=== PATIENT | female | born 1960 ===

== ENCOUNTER → 2020-05-08 11:02 | Outpatient (BNVA) | payer OTHER, SELFPAY | PROVIDERS: PCP Internal Medicine; Referring Provider Internal Medicine; Visit Provider Dietitian, Registered | DX: Z76.89 Persons encountering health services in other specified circumstances (principal) ==

== ENCOUNTER → 2020-06-19 11:27 | Outpatient (BNVA) | payer OTHER, SELFPAY | PROVIDERS: PCP Internal Medicine; Referring Provider Internal Medicine; Visit Provider Dietitian, Registered | DX: Z76.89 Persons encountering health services in other specified circumstances (principal) ==

== ENCOUNTER → 2020-07-27 11:36 | Outpatient (BNVA) | payer OTHER, SELFPAY | PROVIDERS: PCP Internal Medicine; Visit Provider Dietitian, Registered | DX: Z76.89 Persons encountering health services in other specified circumstances (principal) ==

== ENCOUNTER → 2020-08-24 11:10 | Outpatient (BNVA) | payer OTHER, SELFPAY | PROVIDERS: PCP Internal Medicine; Visit Provider Dietitian, Registered ==

== ENCOUNTER → 2021-06-16 12:37 | Outpatient (BNVA) | payer OTHER, SELFPAY | PROVIDERS: PCP Internal Medicine; Visit Provider Internal Medicine | DX: E04.2 Nontoxic multinodular goiter (principal); E55.9 Vitamin D deficiency, unspecified | CPT/HCPCS: 99212 ==

== ENCOUNTER 2021-07-05 13:53 | Outpatient (REF) | payer OTHER, SELFPAY ==
--- NOTE | ~2021-07-05 | CT_ITS ---
EXAMINATION: CT SOFT TISSUE NECK WITHOUT CONTRAST CLINICAL INFORMATION: Nontoxic multinodular goiter COMPARISON: Previous thyroid ultrasound March 2019 TECHNIQUE: Helical imaging was performed in the axial plane with generation of coronal and sagittal reformatted images. This CT examination was performed using dose optimization techniques as appropriate, variously including the following: *Automated exposure control *Adjustment of mA and/or kV according to patient size (this includes techniques or standardized protocols for targeted exams where dose is matched to indication/reason for exam; i.e. extremities or head) *Use of iterative reconstruction technique DLP: 320 mGy-cm FINDINGS: There is a large thyroid nodule exophytic to the lower pole of the left lobe. This measures 3.3 x 3.1 x 5.2 cm in AP transverse and longitudinal dimension. Extends substernally into the superior mediastinum. This displaces the trachea to the right. No mediastinal adenopathy is seen. There is shotty diffuse cervical lymphadenopathy. No enlarged lymph nodes are seen. Visualized intracranial structures are normal. The orbits are normal. The paranasal sinuses, mastoid air cells and middle ears are clear. There is prominent soft tissue seen in the oropharynx. This may represent prominent lymphoid tissue. The epiglottis and larynx are normal. There is mild degenerative spondylosis and degenerative disc disease at C5-C6 and C6-C7. CT/CT soft tissue neck wo con IMPRESSION: Large left thyroid nodule exophytic to the lower pole extending substernally into the chest and displacing the trachea to the right. Shotty bilateral cervical lymphadenopathy. No enlarged lymph nodes are seen. Fullness of the soft tissues in the oropharynx question representing prominent adenoidal soft tissue. Clinical correlation recommended.
== END 2021-07-05 13:54 | disposition home or self-care (01) ==
LOC: HO.CT 13:53
PROVIDERS: Visit Provider Internal Medicine
DX: E04.2 Nontoxic multinodular goiter (principal)
CPT/HCPCS: 70490

== ENCOUNTER 2021-07-19 10:39 | Outpatient (REF) | payer OTHER, SELFPAY ==
[2021-07-19 11:14] LABS: Estimated Average Glucose 108 mg/dL; Hemoglobin A1c % 5.4 %
[2021-07-19 11:27] LABS: Alanine Aminotransferase 30 U/L (0-31); Albumin Level 4.1 g/dL (3.5-5.0); Alkaline Phosphatase 67 U/L (39-117); Anion Gap 9 (12-20); Aspartate Amino Transferase 22 U/L (5-31); Bilirubin Total 0.6 mg/dL (0.0-1.0); Blood Urea Nitrogen 15 mg/dL (9-16); Calcium 10.3 mg/dL (8.4-10.2); Carbon Dioxide 32 mmol/L (22-29); Chloride 105 mmol/L (96-108); Estimated Glomerular Filt Rate > 60; Glucose Random 117 mg/dL (60-115); Phosphorus 3.8 mg/dL (2.7-4.5); Potassium 4.4 mmol/L (3.3-5.1); Sodium 142 mmol/L (135-145); Total Protein 7.7 g/dL (6.5-8.0)
[2021-07-19 11:49] LABS: Thyroid Stimulating Hormone 1.09 uIU/mL (0.32-4.0); Vitamin D 25-OH Total 12.5 ng/mL (>30)
[2021-07-20 12:01] LABS: Calcium (PTHI) 9.9 mg/dL (8.6-10.4); PTHI 74 pg/mL (14-64)
== END 2021-07-19 10:40 | disposition home or self-care (01) ==
LOC: HO.US 10:39
PROVIDERS: PCP Internal Medicine; Visit Provider Internal Medicine
DX: E04.2 Nontoxic multinodular goiter (principal); E55.9 Vitamin D deficiency, unspecified; E66.9 Obesity, unspecified
CPT/HCPCS: 36415; 80053; 82306; 83036; 83970; 84100; 84439; 84443

== ENCOUNTER 2021-07-26 13:20 | Outpatient (REF) | payer OTHER, SELFPAY ==
--- NOTE | ~2021-07-26 | US_ITS ---
EXAMINATION: US THYROID CLINICAL INFORMATION: Goiter. COMPARISON: Thyroid soft tissue neck/head 04/03/2019. TECHNIQUE: Linear transducer soto-scale and color Doppler examination with attention to the region of the thyroid. FINDINGS: SIZE: Measurements of the thyroid lobes and nodules are given in sagittal, anteroposterior and transverse dimensions respectively. Right Thyroid Lobe: 4.7 x 1.6 x 1.7 cm, volume 6.7 mL. Previously 5.0 x 1.6 x 1.8 cm, volume 7.5 mL. Parenchyma: The gland echotexture is heterogeneous. Thyroid vascularity is normal. Left Thyroid Lobe: 6.5 x 3.0 x 2.8 cm, volume 28.6 mL. Previously 5.7 x 2.7 x 2.5 cm, volume 20.1 mL. Parenchyma: The gland echotexture is heterogeneous. Thyroid vascularity is normal. Isthmus: 0.7 cm in maximum AP dimension. Previously 0.4 cm. Estimated total number of nodules greater than or equal to 1 cm: 1. 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 Location: Left lower. Size: 5.4 x 2.9 x 3.4 cm, volume 27.8 mL. Previously: 3.8 x 2.6 x 2.7 cm, volume 14.0 mL. Nodule characteristics: Composition: Solid (2). Echogenicity: Hypoechoic (2). Shape: Not taller than wide (0). Margins: Ill-defined (0). Echogenic Foci: None (0). ACR TI-RADS total points: 4 ACR TI-RADS category: 4 Significant change in size (>/= 20% in 2 dimensions and minimal increase of 2 mm or 50% or greater increase in volume): Yes Change in features: No Change in ACR TI-RADS risk category: No NODES: No lymphadenopathy is seen in the tissue surrounding the thyroid gland. US/US thyroid IMPRESSION: Increased size and heterogeneity of the left lobe of the thyroid and isthmus when compared to study from 2019 with also increased size of a dominant thyroid nodule in the lower pole of the left lobe which now measures up to 5.4 cm versus 3.8 cm in 2019. If not already obtained, further evaluation of this nodule with FNA is recommended. Otherwise, given change in size, a short-term follow-up study is recommended. A few additional nodules in the right lobe of the thyroid described on the prior study are not definitely visualized in the current examination.
== END 2021-07-26 13:21 | disposition home or self-care (01) ==
LOC: HO.US 13:20
PROVIDERS: Visit Provider Internal Medicine
DX: E04.2 Nontoxic multinodular goiter (principal)
CPT/HCPCS: 76536

== ENCOUNTER → 2021-07-28 13:24 | Outpatient (BNVA) | payer OTHER, SELFPAY | PROVIDERS: PCP Internal Medicine; Visit Provider Internal Medicine | DX: E04.2 Nontoxic multinodular goiter (principal); E55.9 Vitamin D deficiency, unspecified; E21.3 Hyperparathyroidism, unspecified; I10 Essential (primary) hypertension | CPT/HCPCS: 99212 ==

== ENCOUNTER 2021-08-28 08:27 | Outpatient (REF) | payer OTHER, SELFPAY ==
--- NOTE | ~2021-08-28 | MM_ITS ---
EXAMINATION: MM SCREENING DIGITAL BREAST TOMOSYNTHESIS, BILATERAL CLINICAL INFORMATION: Screening. Asymptomatic. The lifetime risk of breast cancer based on the Tyrer-Cuzick Model is 6%. COMPARISON: Mammography: 09/30/2017, 05/31/2016, 07/02/2014 TECHNIQUE: Digital breast tomosynthesis is performed in both the craniocaudal and mediolateral oblique views along with computer-aided detection (CAD). Synthesized 2D images are generated from the tomosynthesis. FINDINGS: There are scattered areas of fibroglandular density (ACR BI-RADS breast composition Category b). There are no significant masses, abnormal calcifications, or other abnormalities. Breast tissue composition borders on predominantly fatty. Background stromal markings are stable. No significant changes. MM/MM tomosynthesis screening BI IMPRESSION: No mammographic evidence of malignancy. ASSESSMENT: BI-RADS 1: Negative RECOMMENDATION: Routine annual mammography screening. This patient's information was entered into a reminder system with a target due date for their next mammogram.
== END 2021-08-28 08:28 | disposition home or self-care (01) ==
LOC: HO.MAMMO 08:27
PROVIDERS: Visit Provider Nurse Practitioner Family
DX: Z12.31 Encounter for screening mammogram for malignant neoplasm of breast (principal)
CPT/HCPCS: 77063; 77067

== ENCOUNTER 2021-09-27 10:44 | Outpatient (REF) | payer OTHER, SELFPAY ==
--- NOTE | ~2021-09-27 | US_ITS ---
EXAMINATION: US RENAL DOPPLER CLINICAL INFORMATION: Essential hypertension. COMPARISON: None. TECHNIQUE: Routine ultrasound and Doppler imaging of the kidneys is performed. FINDINGS: Right kidney measures 9.5 x 3.9 x 5.7 cm. There is normal cortical thickness. No echogenic stones, cysts or hydronephrosis seen. Left kidney measures 11.0 x 4.8 x 4.8 cm. There are no echogenic stones, cysts or hydronephrosis. On Doppler Imaging: Right kidney: The proximal right renal artery velocity measures 117 cm/second, midsegment measures 121 cm/second and distal segment measures 63 cm/second. The average segmental resistive index is less than 0.8 cm. Renal aortic ratio is less than 3.5. Left kidney: The proximal left renal artery velocity measures 80.7 cm/second, midsegment measures 103 cm/second and distal segment measures 116 cm/second. The average resistive index measures less than 0.8 cm. Renal aortic ratio is less than 3.5. Peak mid aortic systolic velocity measures 90.3 cm/second. US/US renal doppler IMPRESSION: Unremarkable kidney exam. Normal bilateral renal artery Doppler exam. No evidence of renal artery stenosis.
== END 2021-09-27 10:45 | disposition home or self-care (01) ==
LOC: HO.US 10:44
PROVIDERS: PCP Internal Medicine; Visit Provider Internal Medicine
DX: I10 Essential (primary) hypertension (principal)
CPT/HCPCS: 93975

== ENCOUNTER 2021-12-24 11:01 | Outpatient (REF) | payer OTHER, SELFPAY ==
[2021-12-24 12:27] LABS: Alanine Aminotransferase 25 U/L (0-31); Alkaline Phosphatase 55 U/L (39-117); Anion Gap 15 (12-20); Aspartate Amino Transferase 22 U/L (5-31); Bilirubin Total 0.5 mg/dL (0.0-1.0); Blood Urea Nitrogen 20 mg/dL (9-16); Calcium 9.2 mg/dL (8.4-10.2); Carbon Dioxide 27 mmol/L (22-29); Chloride 108 mmol/L (96-108); Cholesterol 179 mg/dL; Estimated Glomerular Filt Rate > 60; Glucose Fasting 96 mg/dL (60-99); HDL Cholesterol 43 mg/dL; LDL Cholesterol Calculated 116 mg/dl; Potassium 4.4 mmol/L (3.3-5.1); Sodium 146 mmol/L (135-145); Total Protein 7.2 g/dL (6.5-8.0); Triglycerides 100 mg/dL
== END 2021-12-24 11:02 | disposition home or self-care (01) ==
LOC: HO.LAB 11:01
PROVIDERS: PCP Internal Medicine; Visit Provider Internal Medicine
DX: I10 Essential (primary) hypertension (principal); E78.5 Hyperlipidemia, unspecified
CPT/HCPCS: 36415; 80053; 80061

== ENCOUNTER 2022-02-03 10:50 | Outpatient (REF) | payer OTHER, SELFPAY ==
--- NOTE | 2022-02-03 11:16 | P.BOP_ITS ---
Brief Operative Note Date of Service: 02/03/22 Pre-op diagnosis: Multinodular thyroid Procedure: This is doctor Harini Garcia. This is an ultrasound-guided fine-needle aspiration report. Date of Examination: 02/03/2022 Indication: Multinodular Thyroid Porcedure: Procedure was explained to the patient. Alternatives, the risk and benefits were discussed. Written consent was obtained. A time-out was also obtained. After sterile preparation, fine-needle aspiration of a left lower pole 5.4 cm thyroid nodule was performed using direct ultrasound guidance to confirm accurate needle placement. Four aspirations were made using 27 gauge needles. Samples were submitted for cytology. 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 The patient tolerated the procedure well. Aftercare instructions were provided. Impression: Uncomplicated fine needle aspiration biopsy of a left lower pole 5.4 cm thyroid nodule under ultrasound guidance. Surgeon: Harini Garcia, DO Was an Department Clinician used for this Procedure?: No Estimated blood loss (mL): 0
[2022-02-03] MEDS: Lidocaine HCl 1 % MPF 5 ML VIAL SUBCUT (11:36)
== END 2022-02-03 10:51 | disposition home or self-care (01) ==
LOC: HO.US 10:50
PROVIDERS: Visit Provider Internal Medicine
DX: E04.2 Nontoxic multinodular goiter (principal)
CPT/HCPCS: 10005; 88172; 88173; 88177

== ENCOUNTER → 2022-02-17 13:20 | Outpatient (BNVA) | payer OTHER, SELFPAY | PROVIDERS: PCP Internal Medicine; Visit Provider Internal Medicine | DX: E55.9 Vitamin D deficiency, unspecified (principal); E04.2 Nontoxic multinodular goiter; E21.3 Hyperparathyroidism, unspecified | CPT/HCPCS: 99212 ==

== ENCOUNTER 2022-08-06 09:08 | Outpatient (REF) | payer OTHER, SELFPAY ==
[2022-08-06 11:27] LABS: Alanine Aminotransferase 23 U/L (0-31); Albumin Level 3.9 g/dL (3.5-5.0); Alkaline Phosphatase 59 U/L (39-117); Anion Gap 14 (12-20); Aspartate Amino Transferase 19 U/L (5-31); Bilirubin Total 0.4 mg/dL (0.0-1.0); Blood Urea Nitrogen 25 mg/dL (9-16); Calcium 9.4 mg/dL (8.4-10.2); Carbon Dioxide 24 mmol/L (22-29); Chloride 110 mmol/L (96-108); Estimated Glomerular Filt Rate > 60; Glucose Random 107 mg/dL (60-115); Phosphorus 3.2 mg/dL (2.7-4.5); Potassium 4.3 mmol/L (3.3-5.1); Sodium 144 mmol/L (135-145)
[2022-08-06 11:43] LABS: Free T4 (Free Thyroxine) 1.31 ng/dL (0.71-1.85); Thyroid Stimulating Hormone 0.75 uIU/mL (0.32-4.0); Vitamin D 25-OH Total 53.4 ng/mL (>30)
[2022-08-08 16:29] LABS: Calcium (PTHI) 9.7 mg/dL (8.6-10.4); PTHI 94 pg/mL (16-77)
== END 2022-08-06 09:09 | disposition home or self-care (01) ==
LOC: HO.LAB 09:08
PROVIDERS: PCP Internal Medicine; Visit Provider Internal Medicine
DX: E04.2 Nontoxic multinodular goiter (principal); E21.3 Hyperparathyroidism, unspecified; E55.9 Vitamin D deficiency, unspecified
CPT/HCPCS: 36415; 80053; 82306; 83970; 84100; 84439; 84443

== ENCOUNTER 2022-08-22 13:49 | Outpatient (REF) | payer OTHER, SELFPAY ==
[2022-08-22 15:45] LABS: Alanine Aminotransferase 24 U/L (0-31); Albumin Level 4.3 g/dL (3.5-5.0); Alkaline Phosphatase 67 U/L (39-117); Anion Gap 14 (12-20); Aspartate Amino Transferase 19 U/L (5-31); Bilirubin Total 0.5 mg/dL (0.0-1.0); Blood Urea Nitrogen 24 mg/dL (9-16); Carbon Dioxide 27 mmol/L (22-29); Chloride 106 mmol/L (96-108); Estimated Glomerular Filt Rate > 60; Glucose Random 89 mg/dL (60-115); Phosphorus 3.6 mg/dL (2.7-4.5); Sodium 143 mmol/L (135-145); Total Protein 7.5 g/dL (6.5-8.0)
[2022-08-22 16:00] LABS: Vitamin D 25-OH Total 53.6 ng/mL (>30)
[2022-08-23 15:08] LABS: Calcium (PTHI) 10.1 mg/dL (8.6-10.4); PTHI 65 pg/mL (16-77)
== END 2022-08-22 13:50 | disposition home or self-care (01) ==
LOC: HO.LAB 13:49
PROVIDERS: PCP Internal Medicine; Visit Provider Internal Medicine
DX: E21.3 Hyperparathyroidism, unspecified (principal); E55.9 Vitamin D deficiency, unspecified; E04.2 Nontoxic multinodular goiter
CPT/HCPCS: 36415; 80053; 82306; 83970; 84100; 99212

== ENCOUNTER 2022-09-17 10:05 | Outpatient (REF) | payer OTHER, SELFPAY ==
--- NOTE | ~2022-09-17 | MM_ITS ---
EXAMINATION: MM SCREENING DIGITAL BREAST TOMOSYNTHESIS, BILATERAL CLINICAL INFORMATION: Screening. Asymptomatic. The lifetime risk of breast cancer based on the Tyrer-Cuzick Model is 5%. COMPARISON: Mammography: 08/28/2021, 09/30/2017, 05/31/2016 TECHNIQUE: Digital breast tomosynthesis is performed in both the craniocaudal and mediolateral oblique views along with computer-aided detection (CAD). Synthesized 2D images are generated from the tomosynthesis. FINDINGS: There are scattered areas of fibroglandular density (ACR BI-RADS breast composition Category b). Breast tissue composition borders on predominantly fatty. Background stromal markings are normal. No developing density or architectural abnormality. There are no significant masses, abnormal calcifications, or other abnormalities. No significant changes from prior studies. MM/MM tomosynthesis screening BI IMPRESSION: No mammographic evidence of malignancy. ASSESSMENT: BI-RADS 1: Negative RECOMMENDATION: Routine annual mammography screening. This patient's information was entered into a reminder system with a target due date for their next mammogram.
[2022-09-17 10:21] LABS: MANUAL DIFF FLAG NO
[2022-09-17 11:12] LABS: Basophils Absolute Auto 0.1 X10*3/uL (0.0-0.2); Basophils Percent Auto 0.6 % (0-2); Eosinophils Absolute Auto 0.1 X10*3/uL (0.0-0.4); Eosinophils Percent Auto 1.7 % (0-4); Hematocrit 41.5 % (37.0-47.0); Hemoglobin 15.1 g/dl (12.0-16.0); Imm Gran Abs Auto 0.03 X10*3/uL (0.00-0.03); Imm Gran Pct Auto 0.4 % (0.0-0.4); Lymphocytes Absolute Auto 2.7 X10*3/uL (1.2-4.9); Lymphocytes Percent Auto 34.9 % (20-40); Mean Corpuscular HGB Conc 36.4 g/dl (31.0-35.0); Mean Corpuscular Volume 87.9 fL (80.0-98.0); Mean Platelet Volume 11.4 fL (9.4-12.3); Monocytes Absolute Auto 0.5 X10*3/uL (0.1-1.2); Monocytes Percent Auto 6.8 % (2-11); Neutrophils Absolute Auto 4.3 x10*3/uL (2.0-8.3); Neutrophils Percent Auto 55.6 % (45-73); Platelet Count 297 X10*3/uL (160-400); Red Blood Count 4.72 X10*6/uL (4.20-5.50); Red Cell Distribution Width 12.2 % (11.0-16.0); White Blood Count 7.8 X10*3/uL (4.8-10.8)
[2022-09-17 11:36] LABS: Cholesterol 192 mg/dL; HDL Cholesterol 49 mg/dL; LDL Cholesterol Calculated 127 mg/dl; Triglycerides 81 mg/dL
== END 2022-09-17 10:06 | disposition home or self-care (01) ==
LOC: HO.MAMMO 10:05
PROVIDERS: Nurse Practitioner Family; Absent Provider Internal Medicine; PCP Internal Medicine; Visit Provider Internal Medicine
DX: Z00.00 Encounter for general adult medical examination without abnormal findings (principal); Z12.31 Encounter for screening mammogram for malignant neoplasm of breast; E78.5 Hyperlipidemia, unspecified
CPT/HCPCS: 36415; 77063; 77067; 80061; 85025

== ENCOUNTER 2022-09-17 11:12 | Outpatient (REF) | payer OTHER, SELFPAY ==
[2022-09-17 11:41] LABS: Creatinine, mg/dL 48.86
[2022-09-17 12:10] LABS: Creatinine, 24Hr Urine 1.5 G/Day (1.0-2.0); Total Volume 24 Hour Urine 3000 mL
[2022-09-19 16:34] LABS: Calcium, 24 Hr Urine 210 mg/24 h; Calcium/Creatinine Ratio 140 mg/g creat (30-275)
== END 2022-09-17 11:13 | disposition home or self-care (01) ==
LOC: HO.LNP 11:12
PROVIDERS: Visit Provider Internal Medicine
DX: E21.3 Hyperparathyroidism, unspecified (principal)
CPT/HCPCS: 82340; 82570

== ENCOUNTER 2022-11-23 10:57 | Outpatient (REF) | payer OTHER, SELFPAY ==
[2022-11-23 13:01] LABS: Alanine Aminotransferase 23 U/L (0-31); Alkaline Phosphatase 63 U/L (39-117); Anion Gap 12 (12-20); Aspartate Amino Transferase 21 U/L (5-31); Bilirubin Total 0.5 mg/dL (0.0-1.0); Blood Urea Nitrogen 16 mg/dL (9-16); Calcium 9.4 mg/dL (8.4-10.2); Carbon Dioxide 28 mmol/L (22-29); Chloride 110 mmol/L (96-108); Estimated Glomerular Filt Rate > 60; Glucose Random 111 mg/dL (60-115); Phosphorus 2.9 mg/dL (2.7-4.5); Potassium 4.2 mmol/L (3.3-5.1); Sodium 146 mmol/L (135-145); Total Protein 7.2 g/dL (6.5-8.0)
[2022-11-23 13:02] LABS: Free T4 (Free Thyroxine) 1.13 ng/dL (0.71-1.85); Thyroid Stimulating Hormone 0.76 uIU/mL (0.32-4.0); Vitamin D 25-OH Total 34.3 ng/mL (>30)
[2022-11-25 15:33] LABS: Calcium (PTHI) 9.4 mg/dL (8.6-10.4); PTHI 77 pg/mL (16-77)
== END 2022-11-23 10:58 | disposition home or self-care (01) ==
LOC: HO.LAB 10:57
PROVIDERS: PCP Internal Medicine; Visit Provider Internal Medicine
DX: E04.2 Nontoxic multinodular goiter (principal); E21.3 Hyperparathyroidism, unspecified; E55.9 Vitamin D deficiency, unspecified; R13.10 Dysphagia, unspecified; Z79.899 Other long term (current) drug therapy
CPT/HCPCS: 36415; 80053; 82306; 83970; 84100; 84439; 84443; 99212

== ENCOUNTER 2022-11-24 10:27 | Outpatient (REF) | payer OTHER, SELFPAY ==
[2022-11-24 11:42] LABS: Sodium 145 mmol/L (135-145)
== END 2022-11-24 10:28 | disposition home or self-care (01) ==
LOC: HO.LAB 10:27
PROVIDERS: PCP Internal Medicine; Visit Provider Internal Medicine
DX: I10 Essential (primary) hypertension (principal)
CPT/HCPCS: 36415; 84295

== ENCOUNTER 2023-05-11 06:01 | Outpatient (REF) | payer OTHER, SELFPAY ==
[2023-05-11 07:59] LABS: Alanine Aminotransferase 22 U/L (0-31); Albumin Level 3.9 g/dL (3.5-5.0); Alkaline Phosphatase 60 U/L (39-117); Anion Gap 12 (12-20); Aspartate Amino Transferase 21 U/L (5-31); Bilirubin Total 0.4 mg/dL (0.0-1.0); Blood Urea Nitrogen 20 mg/dL (9-16); Calcium 9.2 mg/dL (8.4-10.2); Carbon Dioxide 25 mmol/L (22-29); Chloride 111 mmol/L (96-108); Estimated Glomerular Filt Rate > 60; Glucose Random 109 mg/dL (60-115); Phosphorus 2.7 mg/dL (2.7-4.5); Potassium 3.7 mmol/L (3.3-5.1); Sodium 144 mmol/L (135-145); Total Protein 7.2 g/dL (6.5-8.0)
[2023-05-11 08:05] LABS: Free T4 (Free Thyroxine) 0.98 ng/dL (0.71-1.85); Thyroid Stimulating Hormone 4.78 uIU/mL (0.32-4.0); Vitamin D 25-OH Total 26.6 ng/mL (>30)
[2023-05-12 19:33] LABS: Calcium (PTHI) 8.9 mg/dL (8.6-10.4); PTHI 61 pg/mL (16-77)
== END 2023-05-11 06:02 | disposition home or self-care (01) ==
LOC: HO.LAB 06:01
PROVIDERS: PCP Internal Medicine; Visit Provider Internal Medicine
DX: E55.9 Vitamin D deficiency, unspecified (principal); E21.3 Hyperparathyroidism, unspecified; E04.2 Nontoxic multinodular goiter
CPT/HCPCS: 36415; 80053; 82306; 83970; 84100; 84439; 84443

== ENCOUNTER 2023-05-15 16:15 | Outpatient (AMB) | payer OTHER, SELFPAY ==
[2023-05-15 16:16] VITALS: BP 138/88; PULSE 91; BMI 37.9
--- NOTE | 2023-05-15 16:16 | MHC.OFFVIS ---
Intake Vital Signs 05/15/23 16:16 Height 5 ft Weight 194 lb 3.636 oz BMI 37.9 BP 138/88 Blood Pressure Location Rt brachial Position Sitting Pulse 91 Pulse Source Pulse Oximeter Intake Visit Reasons: F/U NTMNG Intake Note: Patient present for NTMNG follow up visit. District Branch Manager Required: Yes District Branch Manager Language: Laboratory Development Technician Name: Sandra [id number] Information Interpreted: non-clinical & clinical Accompanied by: Self / Same As Patient Allergies No Known Allergies Allergy (Verified 05/15/23 16:25) HPI HPI Comments History of Present Illness Details 63 YO Female with a PMHx of a NTMNG who is seen in F/U. She was previously followed by Dr. Bland. The patient last saw Dr. Felder on 11/23/2022 She has a large LLP thyroid nodule and underwent FNA biopsy of this LLP 4.3 cm thyroid nodule 04/12/2018 with benign cytology. She had a repeat US completed 04/03/2019 which revealed interval decrease in size of this nodule to 3.8 cm. She was advised to F/U in 1 years time with labs and an US prior, but was lost to F/U. She does report dysphagia, and some tenderness on the L side of the neck. She denies any symptoms of hyper or hypothyroidism currently. Due to her dysphagia a CT of the neck was checked 07/05/2021 which revealed a large nodule exophytic to the L lobe of the thyroid extending into the superior mediastinum and displacing the trachea to the right. She had a repeat thyroid US which demonstated a 5.4 cm LLP thyroid nodule. She underwent FNA biopsy 02/03/2022 of this LLP 5.4 cm thyroid nodule with benign cytology. She was referred to Dr. Bah and was scheduled for surgical thyroidectomy, but cancelled this due to a tooth infection. She has not yet been rescheduled. Labs revealed TFTs WNL, but her PTH was elevated in the setting of low Vitamin D. Calcium was high normal. Labs were repeated and PTH had normalized, but Calcium remained high normal. 24 hour urine calcium was high normal. She remains off calcium and Vitamin D at this time. Labs: Laboratory Tests 04/13/20 07/19/21 07/19/21 12:08 10:40 10:40 Creatinine 0.85 Estimated GFR > 60 Albumin 4.1 25-OH Vitamin D To odalis 12.5 Free T4 1.29 1.20 TSH 3rd Generation 0.59 TSH 1.09 PTH Intact 74 H Calcium (PTH Intac t) 9.9 CT Neck: 07/05/2021 FINDINGS: There is a large thyroid nodule exophytic to the lower pole of the left lobe. This measures 3.3 x 3.1 x 5.2 cm in AP transverse and longitudinal dimension. Extends substernally into the superior mediastinum. This displaces the trachea to the right. No mediastinal adenopathy is seen. There is shotty diffuse cervical lymphadenopathy. No enlarged lymph nodes are seen. Visualized intracranial structures are normal. The orbits are normal. The paranasal sinuses, mastoid air cells and middle ears are clear. There is prominent soft tissue seen in the oropharynx. This may represent prominent lymphoid tissue. The epiglottis and larynx are normal. There is mild degenerative spondylosis and degenerative disc disease at C5-C6 and C6-C7. CT/CT soft tissue neck wo con IMPRESSION: Large left thyroid nodule exophytic to the lower pole extending substernally into the chest and displacing the trachea to the right. Shotty bilateral cervical lymphadenopathy. No enlarged lymph nodes are seen. Fullness of the soft tissues in the oropharynx question representing prominent adenoidal soft tissue. Clinical correlation recommended. Thyroid US: 07/26/2021 Right Thyroid Lobe: 4.7 x 1.6 x 1.7 cm, volume 6.7 mL. Previously 5.0 x 1.6 x 1.8 cm, volume 7.5 mL. Parenchyma: The gland echotexture is heterogeneous. Thyroid vascularity is normal. Left Thyroid Lobe: 6.5 x 3.0 x 2.8 cm, volume 28.6 mL. Previously 5.7 x 2.7 x 2.5 cm, volume 20.1 mL. Parenchyma: The gland echotexture is heterogeneous. Thyroid vascularity is normal. Isthmus: 0.7 cm in maximum AP dimension. Previously 0.4 cm. Estimated total number of nodules greater than or equal to 1 cm: 1. 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 Location: Left lower. ?? ? Size: 5.4 x 2.9 x 3.4 cm, volume 27.8 mL. ?? ? Previously: 3.8 x 2.6 x 2.7 cm, volume 14.0 mL. ?? ? Nodule characteristics: ?? ? Composition: Solid (2). ?? ? Echogenicity: Hypoechoic (2). ?? ? Shape: Not taller than wide (0). ?? ? Margins: Ill-defined (0). ?? ? Echogenic Foci: None (0). ? ACR TI-RADS total points: 4 ?? ? ACR TI-RADS category: 4 ? Significant change in size (>/= 20% in 2 dimensions and minimal increase of 2 mm or 50% or greater increase in volume): Yes ?? ? Change in features: No ?? ? Change in ACR TI-RADS risk category: No NODES: No lymphadenopathy is seen in the tissue surrounding the thyroid gland. She is status post left thyroidectomy on 01/27/[address] Bah . Feels tired and constipated [facility] Medical History (Updated 01/04/23 @ 11:00 by Tosin Menezes MD) Hyperparathyroidism History of COVID-19 (~03/2021) Vitamin D deficiency Multinodular thyroid Obesity (BMI 30-39.9) Surgical History History of ankle surgery History of section History of colonoscopy History of hand surgery History of total abdominal hysterectomy and bilateral salpingo-oophorectomy Family History Father No problems noted. Mother Hypertension Paternal Aunt Breast cancer Brother Myocardial infarction Social History Household Members: Children Housing: House Alcohol intake: current Alcohol intake frequency: holidays/special occasions only Alcohol type: wine Patient Tobacco Use Status: Never used Tobacco e-Cigarette/Vaping Use: Never Used Second Hand Smoke Exposure: No service: No Current occupational status: employed Current occupational exposures/hazards: No Cognitive needs: No Hearing needs: No Vision needs: Yes Physical Exam Vital Signs: BMI result Body Mass Index 37.9 Const Other: Healing scar status post left lobectomy Assessment & Plan Assessment & Plan (1) Multinodular thyroid: Code(s): E04.2 - Nontoxic multinodular goiter Plan: This 63-year-old female with a history of large left thyroid nodule status post left lobectomy with borderline increased TSH level. The plan is to initiate levothyroxine 75 micrograms and recheck TSH and free T4 in 6 weeks time Orders: Orders Free T4 (Free Thyroxine) 6 Weeks E04.2 - Nontoxic multinodular goiter Thyroid Stimulating Hormone 6 Weeks E04.2 - Nontoxic multinodular goiter Medications: New levothyroxine 75 mcg PO DAILY 30 tabs 5RF Coding Level of Care Code Est Pt Level 3 (58301) Diagnoses Multinodular thyroid E04.2
== END 2023-05-15 16:33 | disposition home or self-care (01) ==
PROVIDERS: PCP Internal Medicine; Visit Provider Internal Medicine Endocrinology, Diabetes & Metabolism
DX: E04.2 Nontoxic multinodular goiter (principal)
CPT/HCPCS: 99213

== ENCOUNTER → 2023-05-15 16:15 | Outpatient (BNVA) | payer OTHER, SELFPAY | PROVIDERS: PCP Internal Medicine; Visit Provider Internal Medicine Endocrinology, Diabetes & Metabolism | DX: E04.2 Nontoxic multinodular goiter (principal) | CPT/HCPCS: 99212 ==

== ENCOUNTER 2023-05-26 08:37 | Outpatient (REF) | payer OTHER, SELFPAY ==
--- NOTE | ~2023-05-26 | XR_ITS ---
STUDY: Left shoulder and bilateral hand INDICATION: Left shoulder and bilateral hand pain after fall COMPARISON: 06/27/2015 left shoulder TECHNIQUE: 4 view left shoulder 3 view each hand FINDINGS: Left shoulder: Humeral spurring. Mild acromioclavicular joint space narrowing with calcification superior aspect of the joint. Visualized lung and ribs are unremarkable. No fracture or dislocation. Left hand : Fourth DIP interphalangeal joint space narrowing.. Surgical hardware distal left radius. No fracture or dislocation Right hand: No fracture or dislocation. No significant joint space narrowings. XR/XR hand LT 2V IMPRESSION: No acute bony pathology hands the left shoulder and bilateral hands. Degenerative type changes left shoulder and left hand.
--- NOTE | ~2023-05-26 | XR_ITS ---
STUDY: Left shoulder and bilateral hand INDICATION: Left shoulder and bilateral hand pain after fall COMPARISON: 06/27/2015 left shoulder TECHNIQUE: 4 view left shoulder 3 view each hand FINDINGS: Left shoulder: Humeral spurring. Mild acromioclavicular joint space narrowing with calcification superior aspect of the joint. Visualized lung and ribs are unremarkable. No fracture or dislocation. Left hand : Fourth DIP interphalangeal joint space narrowing.. Surgical hardware distal left radius. No fracture or dislocation Right hand: No fracture or dislocation. No significant joint space narrowings. XR/XR hand RT 2V IMPRESSION: No acute bony pathology hands the left shoulder and bilateral hands. Degenerative type changes left shoulder and left hand.
--- NOTE | ~2023-05-26 | XR_ITS ---
STUDY: Left shoulder and bilateral hand INDICATION: Left shoulder and bilateral hand pain after fall COMPARISON: 06/27/2015 left shoulder TECHNIQUE: 4 view left shoulder 3 view each hand FINDINGS: Left shoulder: Humeral spurring. Mild acromioclavicular joint space narrowing with calcification superior aspect of the joint. Visualized lung and ribs are unremarkable. No fracture or dislocation. Left hand : Fourth DIP interphalangeal joint space narrowing.. Surgical hardware distal left radius. No fracture or dislocation Right hand: No fracture or dislocation. No significant joint space narrowings. XR/XR shoulder LT min 2V IMPRESSION: No acute bony pathology hands the left shoulder and bilateral hands. Degenerative type changes left shoulder and left hand.
== END 2023-05-26 08:38 | disposition home or self-care (01) ==
LOC: HO.XRAY 08:37
PROVIDERS: PCP Internal Medicine; Visit Provider Internal Medicine
DX: M79.642 Pain in left hand (principal); M79.641 Pain in right hand; M25.512 Pain in left shoulder
CPT/HCPCS: 73030; 73120

== ENCOUNTER 2023-05-29 10:49 | Outpatient (AMB) | payer OTHER, SELFPAY ==
--- NOTE | 2023-05-29 10:52 | MHC.PC.OV ---
Vital Signs 05/29/23 10:53 Height 5 ft Weight 193 lb BMI 37.7 BP 122/80 Blood Pressure Location Lt brachial Position Sitting Pulse 83 Pulse Source Pulse Oximeter Pulse Oximetry (%) 97 Oxygen Delivery Method Room Air Intake Visit Reasons: bp Intake Note: Patient here for a follow up BP Ground Worker Required: No Accompanied by: Self / Same As Patient Allergies No Known Allergies Allergy (Verified 05/29/23 11:04) Medication List - Last Reconciled 05/29/23 by Tosin Menezes MD albuterol sulfate 90 mcg/actuation (ProAir RespiClick) 2 inhalations inhalation Q6H PRN 30 days amlodipine 10 mg PO DAILY 30 days blood pressure monitor As directed budesonide-formoterol 160-4.5 mcg/actuation (Symbicort) 2 puffs inhalation BID cholecalciferol (vitamin D3) 50 mcg PO DAILY 30 days docusate sodium (Colace) 100 mg PO DAILY PRN ibuprofen 800 mg PO TID 30 days levothyroxine 75 mcg PO DAILY lisinopril-hydrochlorothiazide 20-12.5 mg 1 tab PO DAILY 90 days loratadine 10 mg PO DAILY meclizine 25 mg PO DAILY 90 days omeprazole 20 mg PO DAILY 90 days pravastatin 10 mg PO DAILY 90 days Tobacco use date assessed: 08/24/22 Dental Screening Dental Screen Date: 05/29/23 Did you have a dental visit in the last 12 months?: Yes Did you have a dental problem in the last 6 months where you did not have access to dental care?: No Was dental information given to patient?: Patient has dentist HPI HPI Comments History of Present Illness Details This is a 63-year-old female with hypertension, hyperlipidemia, GERD and hypothyroidism that comes today for follow-up on her conditions. Blood pressure stable. Cholesterol well control. GERD stable with PPIs. Last TSH was elevated and this is follow by Endocrinology which gave levothyroxine 75 mcg and TSH will be repeated in 6 weeks. No chest pain or shortness of breath. [facility] Medical History (Updated 05/29/23 @ 11:13 by Tosin Menezes MD) Hyperparathyroidism History of COVID-19 (~03/2021) Vitamin D deficiency Multinodular thyroid Obesity (BMI 30-39.9) Surgical History History of surgery History of colonoscopy History of hand surgery History of ankle surgery History of total abdominal hysterectomy and bilateral salpingo-oophorectomy History of section Family History Father No problems noted. Mother Hypertension Paternal Aunt Breast cancer Brother Myocardial infarction Social History Household Members: Children Housing: House Alcohol intake: current Alcohol intake frequency: holidays/special occasions only Alcohol type: wine Patient Tobacco Use Status: Never used Tobacco e-Cigarette/Vaping Use: Never Used Second Hand Smoke Exposure: No service: No Current occupational status: employed Current occupational exposures/hazards: No Cognitive needs: No Hearing needs: No Vision needs: Yes Questionnaire Thrive Questionnaire Date Thrive assessed: 08/24/22 CHINA-7 AMB Questionnaire CHINA-7 Date CH[place] - 7 assessed: 08/24/22 Source: Developed by Drs. Narendra Olivo, Viviane Peck, Miguel Power and colleagues, with an educational lindsay from [employer]. Review of Systems Const All systems reviewed & are unremarkable except as noted in HPI and below Eyes Reports no additional complaints, Denies change in vision and Denies other visual disturbances Card Denies chest pain at rest, Denies chest pain with activity, Denies edema, Denies irregular heart rhythm, Denies claudication, Denies dyspnea, Denies dyspnea on exertion, Denies orthopnea, Denies paroxysmal nocturnal dyspnea and Denies slow heart rate Resp Denies cough, Denies dyspnea and Denies dyspnea on exertion GI Denies abdominal pain, Denies change in bowel habits, Denies excessive flatus, Denies nausea and Denies vomiting Denies urinary incontinence, Denies urinary hesitancy and Denies urinary urgency Musc Denies abnormal gait, Denies atrophy, Denies deformity and Denies limited range of motion Skin/Breast Denies bleeding lesions, Denies changing lesions and Denies rash Neuro Denies abnormal gait and Denies lack of coordination Physical exam (Primary Care) Vital Signs: Last Vital Signs Pulse 83 05/29/23 10:53 BP 122/80 05/29/23 10:53 Pulse Ox 97 05/29/23 10:53 Oxygen Delivery Method Room Air 05/29/23 10:53 BMI result Body Mass Index 37.7 Tobacco/Smoking Status: Tobacco use Status Tobacco use date assessed 08/24/22 05/29/23 10:57 Patient Tobacco Use Status Never used Tobacco 05/29/23 10:57 e-Cigarette/Vaping Use Never Used 05/29/23 10:57 Thrive Assessment: Date of Thrive Assessment Date Thrive assessed 08/24/22 05/29/23 10:57 Eyes General: appearance normal, both eyes and all related structures Eyelids: Yes eyelids normal Conjunctivae: conjunctivae normal Neck Neck: Yes normal visual inspection and Yes supple Resp Effort & Inspection: normal respiratory effort Auscultation: clear to auscultation bilaterally Cardio Jugular venous distension: no JVD Rate: regular rate Rhythm: regular rhythm Heart sounds: S1 normal heart sound present and S2 normal heart sound present Extrem General: Yes full ROM Office Procedures Flu Questionnaire Does the patient have a severe egg allergy?: No Does the patient have severe life threatening allergies?: No Does the patient have a fever or illness today?: No Has the patient ever had Guillain-Teaneck Syndrome?: No Has the patient ever had any past reaction to a flu shot?: No Immunizations flu vacc [id number] 6mos up(PF) 60 mcg(15 mcgx4)/0.5 mL IM syringe Performing Provider: Tosin Menezes MD [facility] Administered by: BATOOL Spencer on 05/29/23 11:13 Dose Route Admin Location Dispensed Lot Number Expiration Date NDC [employer]ker 0.5 mL IM Left Deltoid 0.5 mL [id number] 01/14/24 90315-296-04 [facility] [place] VIS Given Date VIS Provided VIS Publication Date 05/29/23 Single Vaccine 21 Eligibility Eligibility Date Funding Source Not [facility] Eligible 05/29/23 Private Assessment and Plan Assessment & Plan (1) HTN (hypertension): Code(s): I10 - Essential (primary) hypertension Qualifiers: Hypertension type: essential hypertension Qualified Code(s): I10 - Essential (primary) hypertension Plan: Continue lisinopril-hydrochlorothiazide. Blood pressure goal is equal or less than 130/80. (2) Hyperlipidemia: Code(s): E78.5 - Hyperlipidemia, unspecified Plan: Continue statins. (3) GERD (gastroesophageal reflux disease): Code(s): K21.9 - Gastro-esophageal reflux disease without esophagitis Plan: Continue PPIs. (4) Postoperative hypothyroidism: Code(s): E89.0 - Postprocedural hypothyroidism Plan: Continue levothyroxine. Follow-up with endocrinology Orders: Orders Lipid Panel Today E78.5 - Hyperlipidemia, unspecified Influenza [id number] Immunization Today Z23 - Encounter for immunization Vitamin D 25-OH Total Today E55.9 - Vitamin D deficiency, unspecified Comprehensive [place]. Panel Fast Today I10 - Essential (primary) hypertension Medications: New flu vacc [id number] 6mos up(PF) 0.5 mL IM ONCE 0.5 mL 0RF Z23 - Encounter for immunization Refilled cholecalciferol (vitamin D3) 50 mcg PO DAILY 30 days 30 caps 11RF E55.9 - Vitamin D deficiency, unspecified Coding Level of Care Code Est Pt Level 4 (25586) Diagnoses Essential hypertension I10 Hypertension type: essential hypertension Hyperlipidemia E78.5 GERD (gastroesophageal reflux disease) K21.9 Postoperative hypothyroidism E89.0 Time Spent (min) 22
[2023-05-29 10:53] VITALS: BP 122/80; PULSE 83; O2SAT 97; BMI 37.7
== END 2023-05-29 11:17 | disposition home or self-care (01) ==
PROVIDERS: PCP Internal Medicine; Visit Provider Internal Medicine
DX: I10 Essential (primary) hypertension (principal); E78.5 Hyperlipidemia, unspecified; K21.9 Gastro-esophageal reflux disease without esophagitis; E89.0 Postprocedural hypothyroidism; Z23 Encounter for immunization
CPT/HCPCS: 90471; 90686; 99214

== ENCOUNTER 2023-09-04 10:27 | Outpatient (REF) | payer SELFPAY ==
[2023-09-04 11:38] LABS: Alanine Aminotransferase 22 U/L (0-31); Albumin Level 3.9 g/dL (3.5-5.0); Alkaline Phosphatase 50 U/L (39-117); Anion Gap 11 (12-20); Aspartate Amino Transferase 22 U/L (5-31); Bilirubin Total 0.3 mg/dL (0.0-1.0); Blood Urea Nitrogen 21 mg/dL (9-16); Calcium 9.2 mg/dL (8.4-10.2); Carbon Dioxide 27 mmol/L (22-29); Chloride 109 mmol/L (96-108); Cholesterol 180 mg/dL (<200); Estimated Glomerular Filt Rate 54; Glucose Fasting 95 mg/dL (60-99); HDL Cholesterol 36 mg/dL (>40); LDL Cholesterol Calculated 116 mg/dL (<100); Potassium 3.9 mmol/L (3.3-5.1); Sodium 143 mmol/L (135-145); Total Protein 7.6 g/dL (6.5-8.0); Triglycerides 144 mg/dL (<150)
[2023-09-04 11:41] LABS: Vitamin D 25-OH Total 42.4 ng/mL (>30)
[2023-09-04 11:55] LABS: Free T4 (Free Thyroxine) 1.17 ng/dL (0.71-1.85); Thyroid Stimulating Hormone 2.08 uIU/mL (0.32-4.0)
== END 2023-09-04 10:28 | disposition home or self-care (01) ==
LOC: HO.LAB 10:27
PROVIDERS: Internal Medicine Endocrinology, Diabetes & Metabolism; Visit Provider Internal Medicine
DX: I10 Essential (primary) hypertension (principal); E04.2 Nontoxic multinodular goiter; E78.5 Hyperlipidemia, unspecified; E55.9 Vitamin D deficiency, unspecified
CPT/HCPCS: 36415; 80053; 80061; 82306; 84439; 84443

== ENCOUNTER 2023-12-30 10:13 | Outpatient (REF) | payer OTHER, SELFPAY ==
[2023-12-30 11:26] LABS: Cholesterol 135 mg/dL (<200); HDL Cholesterol 44 mg/dL (>40); LDL Cholesterol Calculated 77 mg/dL (<100); Triglycerides 72 mg/dL (<150)
== END 2023-12-30 10:14 | disposition home or self-care (01) ==
LOC: HO.LAB 10:13
PROVIDERS: PCP Internal Medicine; Visit Provider Internal Medicine Endocrinology, Diabetes & Metabolism
DX: E78.5 Hyperlipidemia, unspecified (principal)
CPT/HCPCS: 36415; 80061

== ENCOUNTER 2024-01-03 15:16 | Outpatient (AMB) | payer OTHER, SELFPAY ==
[2024-01-03 15:17] VITALS: BP 142/90; PULSE 79; BMI 38.0
--- NOTE | 2024-01-03 15:17 | MHC.OFFVIS ---
Vital Signs 01/03/24 15:17 Height 5 ft Weight 194 lb 10.691 oz BMI 38.0 BP 142/90 H Blood Pressure Location Lt brachial Position Sitting Pulse 79 Pulse Source Pulse Oximeter Intake Visit Reasons: F/U NTMNG Intake Note: Patient present today for NTMNG follow up visit. Central Office Operator Supervisor Required: Yes Central Office Operator Supervisor Language: Used Car Sales Manager Name: Carol [id number] Information Interpreted: non-clinical & clinical Accompanied by: Self / Same As Patient Allergies No Known Allergies Allergy (Verified 01/03/24 15:21) Medication List - Last Reconciled 01/03/24 by Narendra Rossi MD albuterol sulfate 90 mcg/actuation (ProAir RespiClick) 2 inhalations inhalation Q6H PRN 30 days amlodipine 10 mg PO DAILY 30 days atorvastatin 10 mg PO DAILY blood pressure monitor As directed budesonide-formoterol 160-4.5 mcg/actuation (Symbicort) 2 puffs inhalation BID cholecalciferol (vitamin D3) 1,250 mcg PO QWEEK docusate sodium (Colace) 100 mg PO DAILY PRN ibuprofen 800 mg PO TID 30 days levothyroxine 75 mcg PO DAILY lisinopril-hydrochlorothiazide 20-12.5 mg 1 tab PO DAILY 90 days loratadine 10 mg PO DAILY meclizine 25 mg PO DAILY 90 days omeprazole 20 mg PO DAILY 90 days Ventolin HFA 90 mcg/actuation (albuterol sulfate) 2 puffs inhalation Q6H PRN 30 days NS HPI Comments Details: 63 YO Female with a PMHx of a NTMNG who is seen in F/U. She was previously followed by Dr. Bland. She has a large LLP thyroid nodule and underwent FNA biopsy of this LLP 4.3 cm thyroid nodule 04/12/2018 with benign cytology. She had a repeat US completed 04/03/2019 which revealed interval decrease in size of this nodule to 3.8 cm. She was advised to F/U in 1 years time with labs and an US prior, but was lost to F/U. She does report dysphagia, and some tenderness on the L side of the neck. She denies any symptoms of hyper or hypothyroidism currently. Due to her dysphagia a CT of the neck was checked 07/05/2021 which revealed a large nodule exophytic to the L lobe of the thyroid extending into the superior mediastinum and displacing the trachea to the right. She had a repeat thyroid US which demonstated a 5.4 cm LLP thyroid nodule. She underwent FNA biopsy 02/03/2022 of this LLP 5.4 cm thyroid nodule with benign cytology. She was referred to Dr. Bah and was scheduled for surgical thyroidectomy, but cancelled this due to a tooth infection. She has not yet been rescheduled. Labs revealed TFTs WNL, but her PTH was elevated in the setting of low Vitamin D. Calcium was high normal. Labs were repeated and PTH had normalized, but Calcium remained high normal. 24 hour urine calcium was high normal. She remains off calcium and Vitamin D at this time. Labs: Laboratory Tests 04/13/20 07/19/21 07/19/21 12:08 10:40 10:40 Creatinine 0.85 Estimated GFR > 60 Albumin 4.1 25-OH Vitamin D Total 12.5 Free T4 1.29 1.20 TSH 3rd Generation 0.59 TSH 1.09 PTH Intact 74 H Calcium (PTH Intact) 9.9 CT Neck: 07/05/2021 FINDINGS: There is a large thyroid nodule exophytic to the lower pole of the left lobe. This measures 3.3 x 3.1 x 5.2 cm in AP transverse and longitudinal dimension. Extends substernally into the superior mediastinum. This displaces the trachea to the right. No mediastinal adenopathy is seen. There is shotty diffuse cervical lymphadenopathy. No enlarged lymph nodes are seen. Visualized intracranial structures are normal. The orbits are normal. The paranasal sinuses, mastoid air cells and middle ears are clear. There is prominent soft tissue seen in the oropharynx. This may represent prominent lymphoid tissue. The epiglottis and larynx are normal. There is mild degenerative spondylosis and degenerative disc disease at C5-C6 and C6-C7. CT/CT soft tissue neck wo con IMPRESSION: Large left thyroid nodule exophytic to the lower pole extending substernally into the chest and displacing the trachea to the right. Shotty bilateral cervical lymphadenopathy. No enlarged lymph nodes are seen. Fullness of the soft tissues in the oropharynx question representing prominent adenoidal soft tissue. Clinical correlation recommended. Thyroid US: 07/26/2021 Right Thyroid Lobe: 4.7 x 1.6 x 1.7 cm, volume 6.7 mL. Previously 5.0 x 1.6 x 1.8 cm, volume 7.5 mL. Parenchyma: The gland echotexture is heterogeneous. Thyroid vascularity is normal. Left Thyroid Lobe: 6.5 x 3.0 x 2.8 cm, volume 28.6 mL. Previously 5.7 x 2.7 x 2.5 cm, volume 20.1 mL. Parenchyma: The gland echotexture is heterogeneous. Thyroid vascularity is normal. Isthmus: 0.7 cm in maximum AP dimension. Previously 0.4 cm. Estimated total number of nodules greater than or equal to 1 cm: 1. Sports Announcer nodules are described as follows: 1.? Location: Left lower. ?? ? Size: 5.4 x 2.9 x 3.4 cm, volume 27.8 mL. ?? ? Previously: 3.8 x 2.6 x 2.7 cm, volume 14.0 mL. ?? ? Nodule characteristics: ?? ? Composition: Solid (2). ?? ? Echogenicity: Hypoechoic (2). ?? ? Shape: Not taller than wide (0). ?? ? Margins: Ill-defined (0). ?? ? Echogenic Foci: None (0). ? ACR TI-RADS total points: 4 ?? ? ACR TI-RADS category: 4 ? Significant change in size (>/= 20% in 2 dimensions and minimal increase of 2 mm or 50% or greater increase in volume): Yes ?? ? Change in features: No ?? ? Change in ACR TI-RADS risk category: No NODES: No lymphadenopathy is seen in the tissue surrounding the thyroid gland. She is status post left thyroidectomy on 01/27/[address] Bah . Feels tired and constipated [facility] Medical History (Updated 05/29/23 @ 11:13 by Tosin Mneezes MD) Hyperparathyroidism History of COVID-19 (~03/2021) Vitamin D deficiency Multinodular thyroid Obesity (BMI 30-39.9) Surgical History History of surgery History of colonoscopy History of hand surgery History of ankle surgery History of total abdominal hysterectomy and bilateral salpingo-oophorectomy History of section Family History Father No problems noted. Mother Hypertension Paternal Aunt Breast cancer Brother Myocardial infarction Social History Household Members: Children Housing: House Alcohol intake: current Alcohol intake frequency: holidays/special occasions only Alcohol type: wine Patient Tobacco Use Status: Never used Tobacco e-Cigarette/Vaping Use: Never Used Second Hand Smoke Exposure: No service: No Current occupational status: employed Current occupational exposures/hazards: No Cognitive needs: No Hearing needs: No Vision needs: Yes Physical Exam Vital Signs: Last Vital Signs Pulse 79 01/03/24 15:17 BP 142/90 H 01/03/24 15:17 BMI result Body Mass Index 38.0 Const Other: Healing scar status post left lobectomy Assessment & Plan Assessment & Plan (1) Multinodular thyroid: Code(s): E04.2 - Nontoxic multinodular goiter Category: Medical Plan: This 63-year-old female with a history of large left thyroid nodule status post left lobectomy . She is currently on 75 mcg levothyroxine. She appears to be clinically biochemically euthyroid The plan is to continue the current therapy. At this point, patient returned to the care of her primary care provider returned back to endocrinology as needed Medications: Refilled cholecalciferol (vitamin D3) 1,250 mcg PO QWEEK 4 caps 2RF E55.9 - Vitamin D deficiency, unspecified Coding Level of Care Code Est Pt Level 3 (32734) Diagnoses Multinodular thyroid E04.2
== END 2024-01-03 15:36 | disposition home or self-care (01) ==
PROVIDERS: PCP Internal Medicine; Visit Provider Internal Medicine Endocrinology, Diabetes & Metabolism
DX: E04.2 Nontoxic multinodular goiter (principal)
CPT/HCPCS: 99213

== ENCOUNTER → 2024-01-03 15:16 | Outpatient (BNVA) | payer OTHER, SELFPAY | PROVIDERS: PCP Internal Medicine; Visit Provider Internal Medicine Endocrinology, Diabetes & Metabolism | DX: E04.2 Nontoxic multinodular goiter (principal); Z79.899 Other long term (current) drug therapy | CPT/HCPCS: 99212 ==

== ENCOUNTER 2024-08-08 16:02 | Outpatient (AMB) | payer OTHER, SELFPAY ==
[2024-08-08 16:18] VITALS: BP 136/80; BMI 37.1
--- NOTE | 2024-08-08 16:18 | MHC.PC.OV ---
Vital Signs 08/08/24 16:18 Height 5 ft Weight 190 lb BMI 37.1 BP 136/80 Blood Pressure Location Lt brachial Position Sitting Intake Visit Reasons: Annual Exam Intake Note: Patient here for an annual physical exam Instrumentation Fitter Required: Yes Instrumentation Fitter Language: Communications Assistant Name: Tosin Menezes MD Information Interpreted: non-clinical & clinical Accompanied by: Self / Same As Patient Allergies No Known Allergies Allergy (Verified 08/08/24 16:29) Medication List - Last Reconciled 08/08/24 by Tosin Menezes MD albuterol sulfate 90 mcg/actuation (ProAir RespiClick) 2 inhalations inhalation Q6H PRN 30 days amlodipine 10 mg PO DAILY 30 days atorvastatin 10 mg PO DAILY blood pressure monitor As directed budesonide-formoterol 160-4.5 mcg/actuation (Symbicort) 2 puffs inhalation BID cholecalciferol (vitamin D3) 1,250 mcg PO QWEEK docusate sodium (Colace) 100 mg PO DAILY PRN ibuprofen 800 mg PO TID 30 days levothyroxine 75 mcg PO DAILY lisinopril-hydrochlorothiazide 20-12.5 mg 1 tab PO DAILY 90 days loratadine 10 mg PO DAILY meclizine 25 mg PO DAILY 90 days omeprazole 20 mg PO DAILY 90 days Ventolin HFA 90 mcg/actuation (albuterol sulfate) 2 puffs inhalation Q6H PRN 30 days NS Tobacco use date assessed: 08/08/24 Dental Screening Dental Screen Date: 08/08/24 Did you have a dental visit in the last 12 months?: Yes Did you have a dental problem in the last 6 months where you did not have access to dental care?: No Was dental information given to patient?: Patient has dentist HPI HPI Comments History of Present Illness Details The patient is a 64-year-old female presenting for her physical exam. She has right-hand pain, attributed to osteoarthritis. She reports significant discomfort affecting her functional status, particularly gripping and manipulating objects. She has been utilizing occupational therapy techniques and exercises with a physiotherapy ball to mitigate symptoms. Her history indicates prior diagnosis and management of multiple chronic conditions, including essential hypertension, which is currently managed with Amlodipine and Lisinopril with Hydrochlorothiazide. Hyperlipidemia is addressed with Atorvastatin. The patient also has a history of hypothyroidism post-left thyroidectomy, maintained on Levothyroxine. She has mild intermittent asthma controlled with an albuterol inhaler. GERD symptoms are managed with Omeprazole. Occasional constipation and allergic rhinitis are addressed symptomatically. The patient underwent a left thyroidectomy in 2022 and reports multiple previous surgeries, including a colonoscopy in 2014, various orthopedic surgeries, and a hysterectomy with oophorectomy in 1998. Family history is notable for hypertension and diabetes, with no allergies to medication. Complains of chronic idiopathic constipation and said that docusate 100 mg did not work therefore I will send lactulose as needed. - Mammography last completed in 2022; next due. - Colonoscopy completed in 2014; future scheduling discussed. - Upcoming lab work planned to assess thyroid function, cholesterol, blood glucose, renal, and hepatic function. - Consideration for a bone density test. - Pneumonia vaccination discussed. [facility] Medical History (Updated 08/08/24 @ 20:01 by Tosin Menezes MD) Hyperparathyroidism History of COVID-19 (~03/2021) Vitamin D deficiency Multinodular thyroid Obesity (BMI 30-39.9) Surgical History History of surgery History of colonoscopy History of hand surgery History of ankle surgery History of total abdominal hysterectomy and bilateral salpingo-oophorectomy History of section Family History (Updated 08/08/24 @ 16:35 by Tosin Menezes MD) Father Hypertension Diabetes mellitus Mother Hypertension Paternal Aunt Breast cancer Brother Myocardial infarction Social History Household Members: Children Housing: House Alcohol intake: current Alcohol intake frequency: holidays/special occasions only Alcohol type: wine Patient Tobacco Use Status: Never used Tobacco e-Cigarette/Vaping Use: Never Used Second Hand Smoke Exposure: No service: No Current occupational status: employed Current occupational exposures/hazards: No Cognitive needs: No Hearing needs: No Vision needs: Yes Questionnaire PHQ-9 Over the last 2 weeks, how often have you been bothered by any of the following problems? 1. Little interest or pleasure in doing things: not at all 2. Feeling down, depressed, or hopeless: not at all 3. Trouble falling or staying asleep, or sleeping too much: not at all 4. Feeling tired or having little energy: not at all 5. Poor appetite or overeating: not at all 6. Feeling bad about yourself - or that you are a failure or have let yourself or your family down: not at all 7. Trouble concentrating on things, such as reading the newspaper or watching television: not at all 8. Moving or speaking so slowly that other people could have noticed. Or the opposite - being so fidgety or restless that you have been moving around a lot more than usual: not at all 9. Thoughts that you would be better off or of hurting yourself in some way: not at all Total score: 0 Depression Screening Interpretation: Negative Depression Screening Done: Yes 66336 - PHQ-9 Billing: Yes Source: Developed by Drs. Narendra Olivo, Viviane Peck, Miguel Power and colleagues, with an educational lindsay from [employer]. Thrive Questionnaire Date Thrive assessed: 08/08/24 I am a: Patient What is your living situation today?: I choose not to answer this question Within the past 12 months, did the food you bought not last and you didn't have the money to get more?: I choose not to answer this question Within the past 12 months, did you worry whether your food would run out before you got money to buy more?: I choose not to answer this question Do you have trouble paying for medicines?: Yes Do you have trouble getting transportation to medical appointments?: Yes Do you have trouble paying your heating and electricity bill?: No Do you have trouble taking care of your child, family member or friend?: Yes Do you have trouble with day-to-day activities such as bathing, preparing meals, shopping, managing finances, etc.?: Yes Are you currently unemployed and looking for a job?: No Are you interested in more education?: No Please select the resources that you would like help with: Housing/Group Home, Food, Paying for medicine, Transportation, Care for elder or disabled and Daily support Currently or been in a relationship where the following occur: I choose not to answer THRIVE Score: 1 AUDIT C Alcohol Use Questionnaire (AUDIT-C) 1. How often do you have a drink containing alcohol?: Monthly or less 2. How many drinks containing alcohol do you have on a typical day when you are drinking?: 1 or 2 3. How often do you have six or more drinks on one occasion?: Never Total Score: 1 Score Reviewed/Action Taken: No CHINA-7 AMB Questionnaire CHINA-7 Date CHINA - 7 assessed: 08/08/24 Feeling nervous, anxious, or on edge: 1 = Several days Not being able to stop or control worryin = Several days Worrying too much about different things: 1 = Several days Trouble relaxin = Several days Being so restless that it is hard to sit still: 1 = Several days Becoming easily annoyed or irritable: 3 = Nearly every day Feeling afraid as if something awful might happen: 0 = Not at all Total CHINA-7 score (0-4 normal; 5-9 mild; 10-14 moderate; 15-21 severe): 8 Source: Developed by Drs. Narendra Olivo, Viviane Peck, Miguel Power and colleagues, with an educational lindsay from [employer]. CHINA-7 Assessment Billing CHINA-7 Assessment Tool: CHINA-7 Assessment 26800 Review of Systems Const All systems reviewed & are unremarkable except as noted in HPI and below Card Denies chest pain at rest, Denies chest pain with activity, Denies edema, Denies irregular heart rhythm, Denies claudication, Denies dyspnea, Denies dyspnea on exertion, Denies orthopnea, Denies paroxysmal nocturnal dyspnea and Denies slow heart rate Resp Denies cough, Denies dyspnea and Denies dyspnea on exertion GI Denies abdominal pain, Denies change in bowel habits, Denies excessive flatus, Denies nausea and Denies vomiting Physical exam (Primary Care) Vital Signs: Last Vital Signs BP 136/80 08/08/24 16:18 BMI result Body Mass Index 37.1 BMI Assessment/Plan discussion: High BMI High, discussed plan: lifestyle, weight reduction, dietary and physical activity Tobacco/Smoking Status: Tobacco use Status Tobacco use date assessed 08/08/24 08/08/24 16:22 Patient Tobacco Use Status Never used Tobacco 08/08/24 16:22 e-Cigarette/Vaping Use Never Used 08/08/24 16:22 PHQ-9: PHQ-9 Score PHQ-9: Total score 0 08/08/24 16:46 Depression Screening Interpretation: Negative Thrive Assessment: Date of Thrive Assessment Date Thrive assessed 08/08/24 08/08/24 16:22 Currently or been in a relationship where the following occur: I choose not to answer HENMT Head: Yes normal to inspection, Yes normocephalic and Yes atraumatic Ears: external ears normal Eyes General: appearance normal, both eyes and all related structures Eyelids: Yes eyelids normal Conjunctivae: conjunctivae normal Neck Neck: Yes normal visual inspection and Yes supple Resp Effort & Inspection: normal respiratory effort Auscultation: clear to auscultation bilaterally Cardio Jugular venous distension: no JVD Rate: regular rate Rhythm: regular rhythm Heart sounds: S1 normal heart sound present and S2 normal heart sound present GI Inspection: Yes normal to inspection Palpation (GI): Soft to palpation and nontender Auscultation: normal bowel sounds Skin General skin exam: no rashes or lesions noted Neuro General: no focal motor deficits Extrem General: Yes full ROM Psych Appearance: grossly normal Office Procedures Flu Questionnaire Does the patient have a severe egg allergy?: No Immunizations Fluarix Triv [id number] (PF) 45 mcg (15 mcg x 3)/0.5 mL IM syringe Performing Provider: Tosin Menezes MD Performing Location: [facility] Documented (not given) by: BATOOL Spencer on 08/08/24 16:46 Reason Not Given: Patient Refused pneumoc 20-vaishnavi conj-dip cr(PF) 0.5 mL IM syringe Performing Provider: Tosin Menezes MD [facility] Administered by: BATOOL Spencer on 08/08/24 16:46 Dose Route Admin Location Dispensed Lot Number Expiration Date [facility] Revenue Agent 0.5 mL IM Right Deltoid 0.5 mL [id number] 10/15/25 1441-2768-74 [employer] VIS Given Date VIS Provided VIS Publication Date 08/08/24 Single Vaccine 21 Eligibility Eligibility Date Funding Source Not [facility] Eligible 08/08/24 Private Coding Level of Care Code Est Pt Level 3 (86094) Est Pt Prev Care 40-64y(96968) Diagnoses Adult general medical exam Z00.00 Chronic idiopathic constipation K59.04 Additional Codes CHINA-7 Assessment Billing - CHINA-7 Assessment Tool: CHINA-7 Assessment 40949 ([id number]) PHQ-9 - 10086 - PHQ-9 Billing: Yes ([id number]) Time Spent (min) 33 Assessment & Plan Assessment & Plan (1) Adult general medical exam: Code(s): Z00.00 - Encounter for general adult medical examination without abnormal findings Category: Medical (2) Chronic idiopathic constipation: Code(s): K59.04 - Chronic idiopathic constipation Category: Medical Plan - Continue Amlodipine for hypertension management. - Maintain Atorvastatin for hyperlipidemia control. - Levothyroxine dosage to remain for thyroid hormone replacement. - Continue Omeprazole for GERD management. - Recommend regular use of occupational therapy exercises for right-hand osteoarthritis. - Provide a stronger laxative recommendation for effective constipation relief. - Loratadine as needed for allergic symptoms. - Plan for upcoming lab tests to monitor metabolic functions. - Recommendation for bone density assessment based on age and history. Patient was informed and verbally consented to the use of an ambient scribe for clinic note documentation during this visit. During our discussion, I explained the potential diagnosis of osteoarthritis as a cause of the patient's right-hand pain and the treatment options available, including occupational therapy exercises and [id number] pain management strategies. We discussed the continuation of current medications for her chronic conditions, emphasizing the importance of adherence. The patient was informed about the upcoming laboratory tests to monitor her thyroid function, cholesterol, blood glucose, renal, and hepatic function. I reviewed the importance of health maintenance screenings, including scheduling for the next colonoscopy and a potential bone density test for osteoporosis screening. The need for a pneumonia vaccination was also discussed to enhance preventive care. Orders: Orders MM tomosynthesis screening BI Today Z12.31 - Encounter for screening mammogram for malignant neoplasm of breast Comprehensive [place]. Panel Fast Today Z00.00 - Encounter for general adult medical examination without abnormal findings Phosphorus Today E21.3 - Hyperparathyroidism, unspecified Vitamin D 25-OH Total Today E21.3 - Hyperparathyroidism, unspecified, E55.9 - Vitamin D deficiency, unspecified Thyroid Stimulating Hormone Today E04.2 - Nontoxic multinodular goiter Pneumococcal 20 Immunization Today Z23 - Encounter for immunization Influenza [id number] Immunization Today Z23 - Encounter for immunization XR DEXA axial skeleton Today Z78.0 - Asymptomatic menopausal state Lipid Panel Today E78.5 - Hyperlipidemia, unspecified Parathyroid Hormone Intact Today E21.3 - Hyperparathyroidism, unspecified Calcium, 24 Hr Ur Today E21.3 - Hyperparathyroidism, unspecified Medications: New lactulose 10 grams (15 mL) PO BEDTIME 30 days PRN 473 mL 3RF constipation K59.04 - Chronic idiopathic constipation hydrochlorothiazide 25 mg PO DAILY 90 days 90 tabs 1RF I10 - Essential (primary) hypertension lisinopril 20 mg PO DAILY 90 days 90 tabs 1RF I10 - Essential (primary) hypertension amlodipine 5 mg PO DAILY 90 days 90 tabs 1RF I10 - Essential (primary) hypertension Discontinued amlodipine Discontinued Reason: Patient Completed Course 10 mg PO DAILY 30 days 30 tabs 11RF I10 - Essential (primary) hypertension docusate sodium (Colace) Discontinued Reason: Patient Completed Course 100 mg PO DAILY PRN 30 caps 1RF constipation K59.00 - Constipation, unspecified lisinopril-hydrochlorothiazide 20-12.5 mg Discontinued Reason: Patient Completed Course 1 tab PO DAILY 90 days 90 tabs 1RF I10 - Essential (primary) hypertension Patient Instructions: - Continue prescribed medications: Amlodipine, Atorvastatin, Levothyroxine, and Omeprazole. - Use stronger laxative as prescribed for constipation. - Perform occupational therapy exercises for hand pain relief. - Take Loratadine as needed for allergies. - Schedule upcoming lab tests and follow-up as directed. - Discuss further screening procedures, including bone density test, in future visits.
== END 2024-08-08 16:45 | disposition home or self-care (01) ==
PROVIDERS: PCP Internal Medicine; Visit Provider Internal Medicine
DX: Z00.00 Encounter for general adult medical examination without abnormal findings (principal); K59.04 Chronic idiopathic constipation; Z23 Encounter for immunization

== ENCOUNTER → 2024-08-08 16:02 | Outpatient (BNVA) | payer OTHER, SELFPAY | PROVIDERS: PCP Internal Medicine; Visit Provider Internal Medicine | DX: Z00.00 Encounter for general adult medical examination without abnormal findings (principal); Z23 Encounter for immunization; K59.04 Chronic idiopathic constipation | CPT/HCPCS: 90471; 90677; 96127; 99212; 99396 ==

== ENCOUNTER 2024-09-13 14:04 | Outpatient (REF) | payer OTHER, SELFPAY ==
--- NOTE | ~2024-09-13 | MM_ITS ---
EXAMINATION: MM SCREENING DIGITAL BREAST TOMOSYNTHESIS, BILATERAL CLINICAL INFORMATION: Screening. Asymptomatic. COMPARISON: Mammography: Comparison is made with available priors TECHNIQUE: Digital breast mammography with tomosynthesis is performed in both the craniocaudal and mediolateral oblique views along with computer-aided detection (CAD). FINDINGS: There are scattered areas of fibroglandular density (ACR BI-RADS breast composition Category b). There are no significant masses, abnormal calcifications, or other abnormalities. MM/MM tomosynthesis screening BI IMPRESSION: No mammographic evidence of malignancy. ASSESSMENT: BI-RADS BI-RADS 1 - Negative RECOMMENDATION: Routine annual mammography screening. 1 year F/U This examination should not preclude the clinical evaluation of a suspicious palpable abnormality. This patient's information was entered into a reminder system with a target due date for their next mammogram. Electronically signed by: Michelle Mata DO 09/17/2024 01:47 PM [facility]
--- NOTE | ~2024-09-13 | MM_ITS ---
EXAMINATION: DXA BONE DENSITY EXTREMITY HISTORY: Estrogen deficiency TECHNIQUE: [employer] Dual energy absorptiometry (DEXA) of the lumbar spine, total left hip, femoral neck, and distal radius was performed. COMPARISON: There are no prior studies for comparison. FINDINGS: The bone mineral density of the lumbar spine is 1.049 with a T-score of -1.1, and a Z-score of -0.5. The bone mineral density of the left total hip is 1.150 with a T-score of 1.1, and a Z-score of 1.6. The bone mineral density of the left femoral neck is 1.077 with a T-score of 0.3, and a Z-score of 1.1. The bone mineral density of the distal radius is 0.892 with a T-score of 0.2, and a Z-score of 1.3. FRACTURE RISK: The FRAX index suggests a risk of major osteoporotic fracture of 2.7%, and of hip fracture 0.1%. MM/XR DEXA appendicular skeleton IMPRESSION: Based on bone mineral density, and according to World Health Organization (WHO) criteria, the diagnosis is consistent with osteopenia. All bone density values are in grams per centimeter squared (g/cm2). Statistically, 68% of repeat scans fall within 1 SD (+/- 0.010 g/cm2 for AP spine L1-L4) and 1 SD (+/- 0.012 g/cm2 for femur total) FRAX is a trademark of the [employer]'s [place] [facility] Metabolic Bone Disease, a World Health Organization (WHO) Collaborating Center. Electronically signed by: Narendra Penaloza MD 09/16/2024 07:08 AM [facility]
== END 2024-09-13 14:05 | disposition home or self-care (01) ==
LOC: HO.MAMMO 14:04
PROVIDERS: PCP Internal Medicine; Visit Provider Internal Medicine
DX: Z12.31 Encounter for screening mammogram for malignant neoplasm of breast (principal); Z78.0 Asymptomatic menopausal state
CPT/HCPCS: 77063; 77067; 77081

== ENCOUNTER → 2024-09-13 14:30 | Outpatient (BNV) | payer OTHER, SELFPAY | PROVIDERS: PCP Internal Medicine; Visit Provider Radiology Diagnostic Radiology | DX: Z12.31 Encounter for screening mammogram for malignant neoplasm of breast (principal) | CPT/HCPCS: 77063; 77067; 77081 ==

== ENCOUNTER 2024-12-05 10:52 | Outpatient (REF) | payer OTHER, SELFPAY ==
[2024-12-05 11:48] LABS: Parathyroid Hormone Intact 112.1 pg/mL (8.7-77.1)
[2024-12-05 13:14] LABS: Alanine Aminotransferase 24 U/L (0-31); Albumin Level 4.2 g/dL (3.5-5.0); Alkaline Phosphatase 57 U/L (39-117); Anion Gap 11 (12-20); Aspartate Amino Transferase 26 U/L (5-31); Bilirubin Total 0.5 mg/dL (0.0-1.0); Blood Urea Nitrogen 21 mg/dL (9-16); Calcium 9.4 mg/dL (8.4-10.2); Carbon Dioxide 27 mmol/L (22-29); Chloride 110 mmol/L (96-108); Cholesterol 149 mg/dL (<200); Estimated Glomerular Filt Rate > 60; Glucose Fasting 99 mg/dL (60-99); HDL Cholesterol 48 mg/dL (>40); LDL Cholesterol Calculated 90 mg/dL (<100); Phosphorus 3.1 mg/dL (2.7-4.5); Potassium 4.3 mmol/L (3.3-5.1); Sodium 144 mmol/L (135-145); Total Protein 7.4 g/dL (6.5-8.0); Triglycerides 56 mg/dL (<150); Vitamin D 25-OH Total 34.1 ng/mL (>30)
== END 2024-12-05 10:53 | disposition home or self-care (01) ==
LOC: HO.LAB 10:52
PROVIDERS: PCP Internal Medicine; Visit Provider Internal Medicine
DX: Z00.00 Encounter for general adult medical examination without abnormal findings (principal); E21.3 Hyperparathyroidism, unspecified; E78.5 Hyperlipidemia, unspecified; E55.9 Vitamin D deficiency, unspecified; E04.2 Nontoxic multinodular goiter
CPT/HCPCS: 36415; 80053; 80061; 82306; 83970; 84100; 84443

== ENCOUNTER 2024-12-07 09:46 | Outpatient (REF) | payer OTHER, SELFPAY ==
[2024-12-10 16:44] LABS: Calcium, 24 Hr Urine 60 mg/24 h; Calcium/Creatinine Ratio 41 mg/g creat (30-275); Creatinine 24Hr Urine 1.46 g/24 h (0.50-2.15)
== END 2024-12-07 09:47 | disposition home or self-care (01) ==
LOC: HO.LNP 09:46
PROVIDERS: Visit Provider Internal Medicine
DX: E21.3 Hyperparathyroidism, unspecified (principal)
CPT/HCPCS: 82340

== ENCOUNTER 2024-12-11 15:55 | Outpatient (AMB) | payer OTHER, SELFPAY ==
[2024-12-11 16:31] VITALS: BP 122/72; BMI 37.7
--- NOTE | 2024-12-11 16:31 | MHC.PC.OV ---
Vital Signs 12/11/24 16:31 Height 5 ft Weight 193 lb BMI 37.7 BP 122/72 Blood Pressure Location Lt brachial Position Sitting Intake Visit Reasons: bp Intake Note: Patient here for a follow up BP Financial Reporting Specialist Required: No Accompanied by: Self / Same As Patient Allergies No Known Allergies Allergy (Verified 08/08/24 16:29) Medication List - Last Reconciled 12/11/24 by Tosin Menezes MD albuterol sulfate 90 mcg/actuation (ProAir RespiClick) 2 inhalations inhalation Q6H PRN 30 days amlodipine 5 mg PO DAILY 90 days atorvastatin 10 mg PO DAILY blood pressure monitor As directed budesonide-formoterol 160-4.5 mcg/actuation (Symbicort) 2 puffs inhalation BID calcium acetate(phosphat bind) 667 mg PO BID 90 days cholecalciferol (vitamin D3) 1,250 mcg PO QWEEK hydrochlorothiazide 25 mg PO DAILY 90 days ibuprofen 800 mg PO TID 30 days lactulose 10 grams (15 mL) PO BEDTIME PRN 30 days levothyroxine 75 mcg PO DAILY lisinopril 20 mg PO DAILY 90 days loratadine 10 mg PO DAILY meclizine 25 mg PO DAILY 90 days omeprazole 20 mg PO DAILY 90 days Ventolin HFA 90 mcg/actuation (albuterol sulfate) 2 puffs inhalation Q6H PRN 30 days NS Tobacco use date assessed: 08/08/24 Dental Screening Dental Screen Date: 08/08/24 HPI HPI Comments History of Present Illness Details The patient is a 64-year-old female presenting with primary hyperparathyroidism. Her recent laboratory evaluation indicates elevated parathyroid hormone levels at 112, with normal levels being up to 77. She is currently asymptomatic for complications such as nephrolithiasis or fractures, although she has a history of osteopenia identified in August. This condition necessitates calcium and vitamin D supplementation. Additionally, the patient has essential hypertension managed with amlodipine and lisinopril, noting some peripheral edema as a side effect. Her hyperlipidemia is effectively controlled with atorvastatin, and she reports satisfactory management of asthma with Symbicort. The patient denies any cardiovascular events and has hypothyroidism controlled with levothyroxine. Her recent thyroid function tests have shown normal results. The patient experiences occasional vertigo for which she uses meclizine and manages allergic rhinitis with loratadine. She has gastroesophageal reflux disease managed with omeprazole and takes lactulose as needed for constipation. She does not smoke and consumes alcohol occasionally. Her recent laboratory evaluations indicate normal kidney function, blood sugar, calcium, phosphorus, and liver enzyme levels. The patient has been counseled regarding the elevated parathyroid hormone levels and potential follow-up interventions. [facility] Medical History (Updated 12/11/24 @ 17:00 by Tosin Menezes MD) Hyperparathyroidism History of COVID-19 (~03/2021) Vitamin D deficiency Multinodular thyroid Obesity (BMI 30-39.9) Surgical History History of surgery History of colonoscopy History of hand surgery History of ankle surgery History of total abdominal hysterectomy and bilateral salpingo-oophorectomy History of section Family History Father Hypertension Diabetes mellitus Mother Hypertension Paternal Aunt Breast cancer Brother Myocardial infarction Social History Household Members: Children Housing: House Alcohol intake: current Alcohol intake frequency: holidays/special occasions only Alcohol type: wine Patient Tobacco Use Status: Never used Tobacco e-Cigarette/Vaping Use: Never Used Second Hand Smoke Exposure: No service: No Current occupational status: employed Current occupational exposures/hazards: No Cognitive needs: No Hearing needs: No Vision needs: Yes Questionnaire PHQ-9 Over the last 2 weeks, how often have you been bothered by any of the following problems? 1. Little interest or pleasure in doing things: nearly every day 2. Feeling down, depressed, or hopeless: not at all 3. Trouble falling or staying asleep, or sleeping too much: not at all 4. Feeling tired or having little energy: several days 5. Poor appetite or overeating: not at all 6. Feeling bad about yourself - or that you are a failure or have let yourself or your family down: not at all 7. Trouble concentrating on things, such as reading the newspaper or watching television: not at all 8. Moving or speaking so slowly that other people could have noticed. Or the opposite - being so fidgety or restless that you have been moving around a lot more than usual: not at all 9. Thoughts that you would be better off or of hurting yourself in some way: not at all Total score: 4 Depression Screening Interpretation: Positive Depression Screening Follow-up: Existing condition and Follow-up Visit Requested Depression Screening Done: Yes 84231 - PHQ-9 Billing: Yes Source: Developed by Drs. Narendra Olivo, Viviane Peck, Miguel Power and colleagues, with an educational lindsay from [employer]. Thrive Questionnaire Date Thrive assessed: 08/08/24 I am a: Patient What is your living situation today?: I choose not to answer this question Within the past 12 months, did the food you bought not last and you didn't have the money to get more?: I choose not to answer this question Within the past 12 months, did you worry whether your food would run out before you got money to buy more?: I choose not to answer this question Do you have trouble paying for medicines?: Yes Do you have trouble getting transportation to medical appointments?: Yes Do you have trouble paying your heating and electricity bill?: No Do you have trouble taking care of your child, family member or friend?: Yes Do you have trouble with day-to-day activities such as bathing, preparing meals, shopping, managing finances, etc.?: Yes Are you currently unemployed and looking for a job?: No Are you interested in more education?: No Please select the resources that you would like help with: None Currently or been in a relationship where the following occur: I choose not to answer THRIVE Score: 1 [place]-7 AMB Questionnaire [place]-7 Date [place] - 7 assessed: 08/08/24 Source: Developed by Drs. Narendra Olivo, Viviane Peck, Miguel Power and colleagues, with an educational lindsay from [employer]. Review of Systems Const All systems reviewed & are unremarkable except as noted in HPI and below Card Denies chest pain at rest, Denies chest pain with activity, Denies edema, Denies irregular heart rhythm, Denies claudication, Denies dyspnea, Denies dyspnea on exertion, Denies orthopnea, Denies paroxysmal nocturnal dyspnea and Denies slow heart rate Resp Denies cough, Denies dyspnea and Denies dyspnea on exertion GI Denies abdominal pain, Denies change in bowel habits, Denies excessive flatus, Denies nausea and Denies vomiting Physical exam (Primary Care) Vital Signs: Last Vital Signs BP 122/72 12/11/24 16:31 BMI result Body Mass Index 37.7 Tobacco/Smoking Status: Tobacco use Status Tobacco use date assessed 08/08/24 12/11/24 16:35 Patient Tobacco Use Status Never used Tobacco 12/11/24 16:35 e-Cigarette/Vaping Use Never Used 12/11/24 16:35 PHQ-9: PHQ-9 Score PHQ-9: Total score 4 12/11/24 16:53 Depression Screening Interpretation: Positive Depression Screening Follow-up: Existing condition and Follow-up Visit Requested Thrive Assessment: Date of Thrive Assessment Date Thrive assessed 08/08/24 12/11/24 16:35 Currently or been in a relationship where the following occur: I choose not to answer Resp Effort & Inspection: normal respiratory effort Auscultation: clear to auscultation bilaterally Cardio Jugular venous distension: no JVD Rate: regular rate Rhythm: regular rhythm Heart sounds: S1 normal heart sound present and S2 normal heart sound present Extrem General: Yes full ROM Coding Level of Care Code Est Pt Level 4 (63078) Complex EM visit Add On G2211 Diagnoses Hyperparathyroidism E21.3 Class 2 obesity with body mass index (BMI) of 37.0 to 37.9 in adult E66.812; Z68.37 Osteopenia M85.80 Postoperative hypothyroidism E89.0 Essential hypertension I10 Hypertension type: essential hypertension Hyperlipidemia E78.5 Vertigo R42 Additional Codes PHQ-9 - 90236 - PHQ-9 Billing: Yes ([id number]) Time Spent (min) 23 Assessment & Plan Assessment & Plan (1) Hyperparathyroidism: Code(s): E21.3 - Hyperparathyroidism, unspecified Category: Medical (2) Class 2 obesity with body mass index (BMI) of 37.0 to 37.9 in adult: Code(s): E66.812 - Obesity, class 2; Z68.37 - Body mass index [BMI] 37.0-37.9, adult Category: Medical (3) Osteopenia: Code(s): M85.80 - Other specified disorders of bone density and structure, unspecified site Category: Medical (4) Postoperative hypothyroidism: Code(s): E89.0 - Postprocedural hypothyroidism Category: Medical (5) HTN (hypertension): Code(s): I10 - Essential (primary) hypertension Category: Medical Qualifiers: Hypertension type: essential hypertension Qualified Code(s): I10 - Essential (primary) hypertension (6) Hyperlipidemia: Code(s): E78.5 - Hyperlipidemia, unspecified Category: Medical (7) Vertigo: Code(s): R42 - Dizziness and giddiness Category: Medical Plan The patient will continue current management of hypertension with amlodipine and lisinopril, while monitoring potential side effects. Hyperlipidemia will be managed with atorvastatin. Asthma control will continue with Symbicort. Further evaluation and possible surgical consultation are recommended for primary hyperparathyroidism. Osteopenia will be managed with calcium and vitamin D supplementation. Hypothyroidism will continue to be managed with levothyroxine, with regular thyroid function tests. Meclizine will be used for vertigo as needed. Omeprazole will manage gastroesophageal reflux disease, and loratadine will be used for allergic rhinitis. The patient is advised to reduce soda intake and consider a protein shake for breakfast. Regular follow-up is recommended to monitor parathyroid hormone levels and associated conditions. Patient was informed and verbally consented to the use of an ambient scribe for clinic note documentation during this visit. I discussed with the patient the management of her current medical conditions, including essential hypertension, hyperlipidemia, asthma, primary hyperparathyroidism, osteopenia, hypothyroidism, vertigo, and gastroesophageal reflux disease. We reviewed the potential need for further evaluation and possible surgical intervention for hyperparathyroidism. The patient was informed about the importance of calcium and vitamin D supplementation for bone health and the need to monitor parathyroid hormone levels. We also discussed the management of side effects from amlodipine and the importance of dietary modifications, including reducing soda intake and considering protein shakes for breakfast. The patient was advised to continue her current medications and to follow up regularly for monitoring and management of her conditions. Orders: Orders Vitamin D 25-OH Total 4 Months E55.9 - Vitamin D deficiency, unspecified Lipid Panel 4 Months E78.5 - Hyperlipidemia, unspecified Comprehensive [place]. Panel Fast 4 Months M85.80 - Other specified disorders of bone density and structure, unspecified site Thyroid Stimulating Hormone 4 Months E89.0 - Postprocedural hypothyroidism Referrals Endocrinology Referral E21.3 - Hyperparathyroidism, unspecified Medications: New cholecalciferol (vitamin D3) 25 mcg PO DAILY 90 caps 1RF 90 days tirzepatide (weight loss) (Zepbound) for 4 weeks 2.5 mg (0.5 mL) subcut QWEEK 2 mL 0RF 4 weeks E66.812 - Obesity, class 2, Z68.37 - Body mass index [BMI] 37.0-37.9, adult Discontinued cholecalciferol (vitamin D3) Discontinued Reason: Patient Completed Course 1,250 mcg PO QWEEK 4 caps 2RF E55.9 - Vitamin D deficiency, unspecified Patient Instructions: - Continue taking your blood pressure medications as prescribed. - Keep using your cholesterol medication. - Use your asthma inhaler as needed. - Take calcium and vitamin D supplements for bone health. - Keep taking your thyroid medication. - Use meclizine if you feel dizzy. - Take omeprazole for acid reflux as directed. - Continue using loratadine for allergies. - Reduce soda intake and try a protein shake for breakfast. - Follow up with lab tests and doctor appointments as scheduled. - Watch for any new or worsening symptoms.
== END 2024-12-11 17:01 | disposition home or self-care (01) ==
LOC: HO.HMCH 15:56
PROVIDERS: PCP Internal Medicine; Visit Provider Internal Medicine
DX: E21.3 Hyperparathyroidism, unspecified (principal); E66.812 Obesity, class 2; Z68.37 Body mass index [BMI] 37.0-37.9, adult; M85.80 Other specified disorders of bone density and structure, unspecified site; E89.0 Postprocedural hypothyroidism; I10 Essential (primary) hypertension; E78.5 Hyperlipidemia, unspecified; R42 Dizziness and giddiness

== ENCOUNTER → 2024-12-11 15:55 | Outpatient (BNVA) | payer OTHER, SELFPAY | PROVIDERS: PCP Internal Medicine; Visit Provider Internal Medicine | DX: E21.0 Primary hyperparathyroidism (principal); I10 Essential (primary) hypertension; E78.5 Hyperlipidemia, unspecified; J30.9 Allergic rhinitis, unspecified; E66.812 Obesity, class 2; M85.80 Other specified disorders of bone density and structure, unspecified site; E89.0 Postprocedural hypothyroidism; R42 Dizziness and giddiness; E55.9 Vitamin D deficiency, unspecified; Z68.37 Body mass index [BMI] 37.0-37.9, adult | CPT/HCPCS: 96127; 99212 ==

== ENCOUNTER 2025-01-28 14:10 | Outpatient (AMB) | payer OTHER, SELFPAY ==
[2025-01-28 14:15] VITALS: BP 150/88; PULSE 76; O2SAT 95; BMI 37.1
--- NOTE | 2025-01-28 14:15 | A.OFFVIS_ITS ---
Vital Signs 01/28/25 14:15 Height 5 ft Weight 190 lb BMI 37.1 BP 150/88 H Blood Pressure Location Lt brachial Position Sitting Pulse 76 Pulse Source Pulse Oximeter Pulse Oximetry (%) 95 Oxygen Delivery Method Room Air Intake Visit Reasons: Hyperparathyroidism Intake Note: Patient present today for Hyperparathyroidism office visit. Manager File Required: Yes Manager File Language: Room Attendant Services: Manager File Present Manager File Name: Liz Information Interpreted: non-clinical & clinical Accompanied by: Self / Same As Patient Allergies No Known Allergies Allergy (Verified 01/28/25 14:20) Medication List - Last Reconciled 01/28/25 by Johana Ayala MD albuterol sulfate 90 mcg/actuation (ProAir RespiClick) 2 inhalations inhalation Q6H PRN 30 days amlodipine 5 mg PO DAILY 90 days atorvastatin 10 mg PO DAILY blood pressure monitor As directed budesonide-formoterol 160-4.5 mcg/actuation (Symbicort) 2 puffs inhalation BID calcium acetate(phosphat bind) 667 mg PO BID 90 days cholecalciferol (vitamin D3) 25 mcg PO DAILY 90 days hydrochlorothiazide 25 mg PO DAILY 90 days ibuprofen 800 mg PO TID 30 days lactulose 10 grams (15 mL) PO BEDTIME PRN 30 days levothyroxine 75 mcg PO DAILY lisinopril 20 mg PO DAILY 90 days loratadine 10 mg PO DAILY meclizine 25 mg PO DAILY 90 days omeprazole 20 mg PO DAILY 90 days tirzepatide (weight loss) (Zepbound) 2.5 mg (0.5 mL) subcut QWEEK 4 weeks Ventolin HFA 90 mcg/actuation (albuterol sulfate) 2 puffs inhalation Q6H PRN 30 days NS HPI Comments Details: 64-year-old female coming in today for initial evaluation of elevated PTH level. She also has a history of postsurgical hypothyroidism. Chart review shows labs from November 2024 DEXA August 2024 showed osteopenia of the lumbar spine with T-score of-1.1, T- score of 1.1 at the left total hip and 0.3 at the left femoral neck consistent with normal bone density of the hip. FRAX not elevated. ( hystrectomtomy in 20s , because of finroids, ovaries also taken out because of cysts, was on HRT till 2000 when she moved from [place] ) no kidney stones , ultrasound kidney 10/05 no stones no fractures HCTZ use: many years for HTN vitamin D: 1000 units daily since December 2024 calcium supplements : 667 mg daily , milk : none doesnt like , no yogurt , cheese 3-4 times a week , does have green leafy vegetables. Nontoxic multinodular goiter s/p left lobectomy 01/27/23 Post surgical hypothyroidism Last saw Dr. Rossi December 2023 04/12/2018: FNA biopsy of a large left lower pole 4.3 cm nodule with benign cytology 04/03/2019: Ultrasound thyroid showed a decrease in the size of the nodule to 3.8 cm. When she started having some compressive symptoms 07/05/2021: CT of the neck revealed a large nodule exophytic to the left lobe extending into the superior mediastinum Ultrasound thyroid showed a left lower pole 5.4 cm nodule. 02/03/2022: FNA biopsy of the left lower pole 5 point cm thyroid nodule with benign cytology. 01/27/23: Status post left lobectomy with Dr. Sara Bah at [facility]. Then she became hypothyroid. On levothyroxine postoperatively. Most recent TSH within normal limits. Physical exam General: sitting comfortably in no acute distress HEENT: normocephalic/atraumatic Neck: supple, Cardiac: normal heart sounds Pulm: normal breath sounds B/L, no added breath sounds Abd: not distended, no tenderness Extremities: no edema, no signs of myxedema Neuro: AAO x3, Speech: normal, no facial droop, moving all 4 extremities Laboratory Tests 06/30/18 10/27/18 07/19/21 10:55 10:30 10:40 Creatinine Estimated GFR Calcium 9.2 9.4 10.3 H Phosphorus Albumin 4.1 4.0 4.1 25-OH Vitamin D Total TSH PTH Intact Ur Creatinine 24 Hour Ur Calcium 24 Hr Calcium/Creat 24 Hr 12/24/21 08/06/22 08/22/22 11:05 09:38 14:43 Creatinine Estimated GFR Calcium 9.2 D 9.4 10.0 D Phosphorus Albumin 4.0 3.9 4.3 25-OH Vitamin D Total TSH PTH Intact Ur Creatinine 24 Hour Ur Calcium 24 Hr Calcium/Creat 24 Hr 11/23/22 05/11/23 09/04/23 11:46 06:09 10:36 Creatinine Estimated GFR Calcium 9.4 9.2 9.2 Phosphorus Albumin 4.0 3.9 3.9 25-OH Vitamin D Total TSH PTH Intact 61 Ur Creatinine 24 Hour Ur Calcium 24 Hr Calcium/Creat 24 Hr 12/05/24 12/07/24 11:06 08:00 Creatinine 0.81 Estimated GFR > 60 Calcium 9.4 Phosphorus 3.1 Albumin 4.2 25-OH Vitamin D Total 34.1 TSH 1.60 PTH Intact 112.1 H Ur Creatinine 24 Hour 1.46 Ur Calcium 24 Hr 60 Calcium/Creat 24 Hr 41 EXAMINATION: DXA BONE DENSITY EXTREMITY 09/13/24 HISTORY: Estrogen deficiency TECHNIQUE: [employer] Dual energy absorptiometry (DEXA) of the lumbar spine, total left hip, femoral neck, and distal radius was performed. COMPARISON: There are no prior studies for comparison. FINDINGS: The bone mineral density of the lumbar spine is 1.049 with a T-score of -1.1, and a Z-score of -0.5. The bone mineral density of the left total hip is 1.150 with a T-score of 1.1, and a Z-score of 1.6. The bone mineral density of the left femoral neck is 1.077 with a T-score of 0.3, and a Z-score of 1.1. The bone mineral density of the distal radius is 0.892 with a T-score of 0.2, and a Z-score of 1.3. FRACTURE RISK: The FRAX index suggests a risk of major osteoporotic fracture of 2.7%, and of hip fracture 0.1%. MM/XR DEXA appendicular skeleton IMPRESSION: Based on bone mineral density, and according to World Health Organization (WHO) criteria, the diagnosis is consistent with osteopenia. CT Neck: 07/05/2021 FINDINGS: There is a large thyroid nodule exophytic to the lower pole of the left lobe. This measures 3.3 x 3.1 x 5.2 cm in AP transverse and longitudinal dimension. Extends substernally into the superior mediastinum. This displaces the trachea to the right. No mediastinal adenopathy is seen. There is shotty diffuse cervical lymphadenopathy. No enlarged lymph nodes are seen. Visualized intracranial structures are normal. The orbits are normal. The paranasal sinuses, mastoid air cells and middle ears are clear. There is prominent soft tissue seen in the oropharynx. This may represent prominent lymphoid tissue. The epiglottis and larynx are normal. There is mild degenerative spondylosis and degenerative disc disease at C5-C6 and C6-C7. CT/CT soft tissue neck wo con IMPRESSION: Large left thyroid nodule exophytic to the lower pole extending substernally into the chest and displacing the trachea to the right. Shotty bilateral cervical lymphadenopathy. No enlarged lymph nodes are seen. Fullness of the soft tissues in the oropharynx question representing prominent adenoidal soft tissue. Clinical correlation recommended. Thyroid US: 07/26/2021 Right Thyroid Lobe: 4.7 x 1.6 x 1.7 cm, volume 6.7 mL. Previously 5.0 x 1.6 x 1.8 cm, volume 7.5 mL. Parenchyma: The gland echotexture is heterogeneous. Thyroid vascularity is normal. Left Thyroid Lobe: 6.5 x 3.0 x 2.8 cm, volume 28.6 mL. Previously 5.7 x 2.7 x 2.5 cm, volume 20.1 mL. Parenchyma: The gland echotexture is heterogeneous. Thyroid vascularity is normal. Isthmus: 0.7 cm in maximum AP dimension. Previously 0.4 cm. Estimated total number of nodules greater than or equal to 1 cm: 1. Lab Systems Analyst nodules are described as follows: 1.? Location: Left lower. ?? ? Size: 5.4 x 2.9 x 3.4 cm, volume 27.8 mL. ?? ? Previously: 3.8 x 2.6 x 2.7 cm, volume 14.0 mL. ?? ? Nodule characteristics: ?? ? Composition: Solid (2). ?? ? Echogenicity: Hypoechoic (2). ?? ? Shape: Not taller than wide (0). ?? ? Margins: Ill-defined (0). ?? ? Echogenic Foci: None (0). ? ACR TI-RADS total points: 4 ?? ? ACR TI-RADS category: 4 ? Significant change in size (>/= 20% in 2 dimensions and minimal increase of 2 mm or 50% or greater increase in volume): Yes ?? ? Change in features: No ?? ? Change in ACR TI-RADS risk category: No NODES: No lymphadenopathy is seen in the tissue surrounding the thyroid gland. [facility] Medical History (Updated 01/28/25 @ 15:04 by Johana Ayala MD) Hyperparathyroidism History of COVID-19 (~03/2021) Vitamin D deficiency Multinodular thyroid Obesity (BMI 30-39.9) Surgical History History of surgery History of colonoscopy History of hand surgery History of ankle surgery History of total abdominal hysterectomy and bilateral salpingo-oophorectomy History of section Family History Father Hypertension Diabetes mellitus Mother Hypertension Paternal Aunt Breast cancer Brother Myocardial infarction Social History Household Members: Children Housing: House Alcohol intake: current Alcohol intake frequency: holidays/special occasions only Alcohol type: wine Patient Tobacco Use Status: Never used Tobacco e-Cigarette/Vaping Use: Never Used Second Hand Smoke Exposure: No service: No Current occupational status: employed Current occupational exposures/hazards: No Cognitive needs: No Hearing needs: No Vision needs: Yes Physical Exam Vital Signs: Last Vital Signs Pulse 76 01/28/25 14:15 BP 150/88 H 01/28/25 14:15 Pulse Ox 95 01/28/25 14:15 Oxygen Delivery Method Room Air 01/28/25 14:15 BMI result Body Mass Index 37.1 Assessment & Plan Assessment & Plan (1) Hyperparathyroidism: Code(s): E21.3 - Hyperparathyroidism, unspecified Category: Medical Plan: 64-year-old female coming in today for initial evaluation of elevated PTH level. I believe the PTH level was done maybe because of osteopenia of lumbar spine. Though her bone density is not that bad, plus FRAX is not elevated. She has several risk factors to have osteopenia, which include poor nutritional intake of calcium, early surgical menopause, she was only on HRT up until her 40s. DEXA August 2024 showed osteopenia of the lumbar spine with T-score of-1.1, T- score of 1.1 at the left total hip and 0.3 at the left femoral neck consistent with normal bone density of the hip. FRAX not elevated. labs from 12/05/2024: Creatinine 0.81, EGFR greater than 60, calcium 9.4, phosphorus 3.1, albumin 4.2, corrected calcium would be 9.2, vitamin-D 34.1, TSH 1.60, PTH level 112.1. 24 hour urine calcium at 60. With calcium creatinine ratio of 41. Most of her calciums have been in the range of 9 to 10. She has no history of kidney stones. No hypercalciuria. If anything her 24 hour urine calcium reflects her poor nutritional intake of calcium. PTH is likely elevated in the setting of poor calcium intake. Even if she has a underlying normocalcemic hyperparathyroidism, given EGFR greater than 60, her age, only mild osteopenia on bone density with no elevated FRAX score, no hypercalciuria and no frankly elevated calcium levels, there is no need for any surgical indication here. We would just monitor her labs. I have also had some PTH variations recently at the [facility], I will ask her to repeat blood work at [facility]. I agree with her being on vitamin-D supplementation she should continue the 1000 units daily. I counseled her about incorporating more calcium in her diet and continuing her calcium supplement. Plan: -ordered labs to be done at [facility] -follow up in 7 weeks to discuss results -continue vitamin-D 1000 units daily -incorporate 2-3 servings of dairy/calcium rich foods daily (2) Osteopenia: Code(s): M85.80 - Other specified disorders of bone density and structure, unspecified site Category: Medical Qualifiers: Osteopenia location: spine Qualified Code(s): M85.88 - Other specified disorders of bone density and structure, other site Plan: See above Plan I spent 45 minutes in reviewing the record, seeing the patient and documenting in the medical record. Orders: Orders Albumin Level Today E21.3 - Hyperparathyroidism, unspecified, M85.80 - Other specified disorders of bone density and structure, unspecified site Parathyroid Hormone Intact Today E21.3 - Hyperparathyroidism, unspecified, M85.80 - Other specified disorders of bone density and structure, unspecified site Vitamin D 25-OH Total Today E21.3 - Hyperparathyroidism, unspecified, M85.80 - Other specified disorders of bone density and structure, unspecified site Calcium Today E21.3 - Hyperparathyroidism, unspecified, M85.80 - Other specified disorders of bone density and structure, unspecified site Calcium, Ionized Today E21.3 - Hyperparathyroidism, unspecified, M85.80 - Other specified disorders of bone density and structure, unspecified site Phosphorus Today E21.3 - Hyperparathyroidism, unspecified, M85.80 - Other specified disorders of bone density and structure, unspecified site Creatinine Today E21.3 - Hyperparathyroidism, unspecified, M85.80 - Other specified disorders of bone density and structure, unspecified site Patient Instructions: continue vitamin D 1000 units daily Continue to incorporate more calcium in your diet such as milk , yogurt, cheese Do blood work at [facility] , [address] [place] [address] Follow up in 7 weeks to discuss results Coding Level of Care Code Est Pt Level 4 (09380) Diagnoses Hyperparathyroidism E21.3 Osteopenia of spine M85.88 Osteopenia location: spine Time Spent (min) 30
--- OUTSIDE RECORDS SUMMARY | 2025-01-28 15:28 | XMS_ITS | Patient Health Record ---
Author Organization [facility] Address [address] [place] [address] Care Team Providers Care Surgical Technologist Name Role Phone Tosin Soliz Primary Care Provider UnavailJone Solis Jr Unavailable Reason For Referral No Information Medications Medication SIG (Take, Route, Frequency, Duration) Notes Start Date End Date Status SUMAtriptan Succinate 50 MG 1 tablet as needed one time Orally Once a day Active Tylenol 325 MG 1 tablet as needed O rally every 6 hrs Active ProAir HFA 108 (90 Base) MCG/ACT 2 puffs as needed Inhalation every 4 hrs Active Butalbital-Acetaminophen 50-325 MG 1 tablet as needed Orally every 4 hrs Active Colyte with Flavor Packs 240 GM As directed Orally Over the specified time. for 1 day(s) 11/05/2014 Active Pravastatin Sodium 20 MG 1 tablet Orally Once a day Active Problems Problem Type SNOMED Code ICD Code Onset Dates Problem Status W/U Status Risk Notes Problem [id number] Colon cancer screening (V76.51) Active confirmed Plan Of Treatment Future Test Test Name Order Date COLONOSCOPY 11/05/2014 Insurance Providers Payer Name Payer Address Payer Phone Subscriber Number Group Number Insured Name Patient Relationship to Insured Coverage Start Date Coverage End Date [employer] [address] [place] [address] [id number] COLON, ADA Self - patient is the insured Medical (General) History Medical History History ICD Code asthma elevated cholesterol headaches Surgical History Surgery Date(Month/Year) section broken ankle broken wrist
== END 2025-01-28 14:59 | disposition home or self-care (01) ==
LOC: HO.ENCR 14:11
PROVIDERS: PCP Internal Medicine; Visit Provider Student in an Organized Health Care Education/Training Program
DX: E21.3 Hyperparathyroidism, unspecified (principal); M85.88 Other specified disorders of bone density and structure, other site
CPT/HCPCS: 99214

== ENCOUNTER → 2025-01-28 14:10 | Outpatient (BNVA) | payer OTHER, SELFPAY | PROVIDERS: PCP Internal Medicine; Visit Provider Student in an Organized Health Care Education/Training Program | DX: E21.3 Hyperparathyroidism, unspecified (principal); M85.88 Other specified disorders of bone density and structure, other site | CPT/HCPCS: 99212 ==

== ENCOUNTER 2025-04-19 09:24 | Outpatient (REF) | payer OTHER, SELFPAY ==
--- OUTSIDE RECORDS SUMMARY | 2025-04-19 09:27 | XMS_ITS | Patient Health Record ---
Author Organization [facility] Address [address] [place] [address] Care Team Providers Care Engineering Drawings Checker Name Role Phone Tosin Soliz Primary Care [...] Problem Status W/U Status Risk Notes Problem [id number] Colon cancer screening (V76.51) Active confirmed Plan Of Treatment Future Test Test Name Order Date COLONOSCOPY 11/05/2014 Insurance Providers Payer Name Payer Address Payer Phone Subscriber Number Group Number Insured Name Patient Relationship to Insured Coverage Start Date Coverage End Date [employer] [address] [place] [address] [id number] COLON, ADA Self - patient is the insured Medical (General) History Medical History History ICD Code asthma elevated cholesterol headaches Surgical History Surgery Date(Month/Year) section broken ankle broken wrist
[2025-04-19 10:59] LABS: Alanine Aminotransferase 25 U/L (0-31); Albumin Level 4.3 g/dL (3.5-5.0); Alkaline Phosphatase 56 U/L (39-117); Anion Gap 13 (12-20); Aspartate Amino Transferase 30 U/L (5-31); Blood Urea Nitrogen 22 mg/dL (9-16); Calcium 9.4 mg/dL (8.4-10.2); Carbon Dioxide 26 mmol/L (22-29); Chloride 111 mmol/L (96-108); Cholesterol 154 mg/dL (<200); Estimated Glomerular Filt Rate > 60; HDL Cholesterol 50 mg/dL (>40); Potassium 4.7 mmol/L (3.3-5.1); Sodium 145 mmol/L (135-145); Total Protein 7.3 g/dL (6.5-8.0); Triglycerides 62 mg/dL (<150)
[2025-04-19 11:18] LABS: Thyroid Stimulating Hormone 2.39 uIU/mL (0.32-4.0)
== END 2025-04-19 09:25 | disposition home or self-care (01) ==
LOC: HO.LAB 09:24
PROVIDERS: PCP Internal Medicine; Visit Provider Internal Medicine
DX: M85.80 Other specified disorders of bone density and structure, unspecified site (principal); E55.9 Vitamin D deficiency, unspecified; E78.5 Hyperlipidemia, unspecified; E89.0 Postprocedural hypothyroidism
CPT/HCPCS: 36415; 80053; 80061; 82306; 84443

== ENCOUNTER 2025-04-30 09:52 | Outpatient (AMB) | payer OTHER, SELFPAY ==
[2025-04-30 10:04] VITALS: BP 150/90; PULSE 85; RESP 18; TEMP 36.2; O2SAT 95; BMI 37.9
--- NOTE | 2025-04-30 10:04 | A.OFFPC_ITS ---
Vital Signs 04/30/25 10:04 Height 5 ft Weight 194 lb BMI 37.9 BP 150/90 H Blood Pressure Location Lt brachial Position Sitting Respiration 18 Pulse 85 Pulse Source Pulse Oximeter Temp 97.1 F Temp Source Temporal Artery Scan Pulse Oximetry (%) 95 Oxygen Delivery Method Room Air Intake Visit Reasons: BP Net Web Developer Required: No Accompanied by: Self / Same As Patient Allergies No Known Allergies Allergy (Verified 04/30/25 10:26) Medication List - Last Reconciled 04/30/25 by Tosin Menezes MD albuterol sulfate 90 mcg/actuation (ProAir RespiClick) 2 inhalations inhalation Q6H PRN 30 days amlodipine 5 mg PO DAILY 90 days atorvastatin 10 mg PO DAILY blood pressure monitor As directed budesonide-formoterol 160-4.5 mcg/actuation (Symbicort) 2 puffs inhalation BID calcium acetate(phosphat bind) 667 mg PO BID 90 days cholecalciferol (vitamin D3) 25 mcg PO DAILY 90 days hydrochlorothiazide 25 mg PO DAILY 90 days ibuprofen 800 mg PO TID 30 days lactulose 10 grams (15 mL) PO BEDTIME PRN 30 days levothyroxine 75 mcg PO DAILY lisinopril 20 mg PO DAILY 90 days loratadine 10 mg PO DAILY meclizine 25 mg PO DAILY 90 days omeprazole 20 mg PO DAILY 90 days Ventolin HFA 90 mcg/actuation (albuterol sulfate) 2 puffs inhalation Q6H PRN 30 days NS Tobacco use date assessed: 04/30/25 Dental Screening Dental Screen Date: 04/30/25 Did you have a dental visit in the last 12 months?: No Did you have a dental problem in the last 6 months where you did not have access to dental care?: No Was dental information given to patient?: No HPI HPI Comments History of Present Illness Details The patient is a 65-year-old female presenting with hypertension and joint pain. Hypertension is currently managed with amlodipine, hydrochlorothiazide, and lisinopril, although the patient did not take her medication today. Recent labs indicate excellent renal function, normal glucose and thyroid levels, and a total cholesterol of 154 mg/dL. She has hypothyroidism on levothyroxine. She also has hyperparathyroidism and will have an appointment with endocrinology for further evaluation and management. Joint pain is reported in the hands, left knee, shoulders, and hips, with significant discomfort in the left knee. The patient is referred to rheumatology, and radiographs of the hands and left knee are ordered. The patient has asthma managed with Symbicort and reports dizziness managed with meclizine. She also uses loratadine for allergies and omeprazole for gastroesophageal reflux disease. The patient denies smoking and consumes alcohol infrequently, typically during holidays. She takes calcium and vitamin D supplements and uses lactulose for constipation as needed. [facility] Medical History (Updated 04/30/25 @ 10:50 by Tosin Menezes MD) Hyperparathyroidism History of COVID-19 (~03/2021) Vitamin D deficiency Multinodular thyroid Obesity (BMI 30-39.9) Surgical History History of surgery History of colonoscopy History of hand surgery History of ankle surgery History of total abdominal hysterectomy and bilateral salpingo-oophorectomy History of section Family History Father Hypertension Diabetes mellitus Mother Hypertension Paternal Aunt Breast cancer Brother Myocardial infarction Social History Household Members: Children Housing: House Alcohol intake: current Alcohol intake frequency: holidays/special occasions only Alcohol type: wine Patient Tobacco Use Status: Never used Tobacco e-Cigarette/Vaping Use: Never Used Second Hand Smoke Exposure: No service: No Current occupational status: employed Current occupational exposures/hazards: No Cognitive needs: No Hearing needs: No Vision needs: Yes Questionnaire Thrive Questionnaire Date Thrive assessed: 08/03/24 I am a: Patient What is your living situation today?: I choose not to answer this question Within the past 12 months, did the food you bought not last and you didn't have the money to get more?: I choose not to answer this question Within the past 12 months, did you worry whether your food would run out before you got money to buy more?: I choose not to answer this question Do you have trouble paying for medicines?: Yes Do you have trouble getting transportation to medical appointments?: Yes Do you have trouble paying your heating and electricity bill?: No Do you have trouble taking care of your child, family member or friend?: Yes Do you have trouble with day-to-day activities such as bathing, preparing meals, shopping, managing finances, etc.?: Yes Are you currently unemployed and looking for a job?: No Are you interested in more education?: No Currently or been in a relationship where the following occur: I choose not to answer THRIVE Score: 1 CHINA-7 AMB Questionnaire CHINA-7 Date CH[place] - 7 assessed: 08/08/24 Source: Developed by Drs. Narendra Olivo, Viviane Peck, Miguel Power and colleagues, with an educational lindsay from [employer]. Review of Systems Const All systems reviewed & are unremarkable except as noted in HPI and below Card Denies chest pain at rest, Denies chest pain with activity, Denies edema, Denies irregular heart rhythm, Denies claudication, Denies dyspnea, Denies dyspnea on exertion, Denies orthopnea, Denies paroxysmal nocturnal dyspnea and Denies slow heart rate Resp Denies cough, Denies dyspnea and Denies dyspnea on exertion Musc Denies atrophy, Denies deformity and Denies limited range of motion Skin/Breast Denies bleeding lesions, Denies changing lesions and Denies rash Physical exam (Primary Care) Vital Signs: Last Vital Signs Temp 97.1 F 04/30/25 10:04 Pulse 85 04/30/25 10:04 Resp 18 04/30/25 10:04 BP 150/90 H 04/30/25 10:04 Pulse Ox 95 04/30/25 10:04 Oxygen Delivery Method Room Air 04/30/25 10:04 BMI result Body Mass Index 37.9 BMI Assessment/Plan discussion: High BMI High, discussed plan: lifestyle, weight reduction, dietary and physical activity Tobacco/Smoking Status: Tobacco use Status Tobacco use date assessed 04/30/25 04/30/25 10:08 Patient Tobacco Use Status Never used Tobacco 04/30/25 10:08 e-Cigarette/Vaping Use Never Used 04/30/25 10:08 Thrive Assessment: Date of Thrive Assessment Date Thrive assessed 08/03/24 04/30/25 10:08 Currently or been in a relationship where the following occur: I choose not to answer Resp Effort & Inspection: normal respiratory effort Auscultation: clear to auscultation bilaterally Cardio Jugular venous distension: no JVD Rate: regular rate Rhythm: regular rhythm Heart sounds: S1 normal heart sound present and S2 normal heart sound present Extrem General: Yes full ROM Office Procedures Flu Questionnaire Does the patient have a severe egg allergy?: No Does the patient have severe life threatening allergies?: No Does the patient have a fever or illness today?: No Has the patient ever had Guillain-[place] Syndrome?: No Has the patient ever had any past reaction to a flu shot?: No Immunizations Fluarix [id number] (PF) 45 mcg (15 mcg x 3)/0.5 mL IM syringe Performing Provider: Tosin Menezes MD Performing Location: [facility] Administered by: Yoli Mancera CMA on 04/30/25 10:36 Dose Route Admin Location Dispensed Lot Number Expiration Date NDC Infection Prevention Practitioner 0.5 mL IM Right Deltoid 0.5 mL [id number] 01/13/26 [id number] [employer] VIS Given Date VIS Provided VIS Publication Date 04/30/25 Single Vaccine 24 Eligibility Eligibility Date Funding Source Not [facility] Eligible 04/30/25 Private Coding Level of Care Code Est Pt Level 4 (57424) Complex EM visit Add On G2211 Diagnoses Polyarthralgia M25.50 Left hand pain M79.642 Right hand pain M79.641 Left knee pain M25.562 Essential hypertension I10 Hypertension type: essential hypertension Postoperative hypothyroidism E89.0 Hyperparathyroidism E21.3 Intermittent asthma J45.20 Time Spent (min) 22 Assessment & Plan Assessment & Plan (1) Polyarthralgia: Code(s): M25.50 - Pain in unspecified joint Category: Medical (2) Left hand pain: Code(s): M79.642 - Pain in left hand Category: Medical (3) Right hand pain: Code(s): M79.641 - Pain in right hand Category: Medical (4) Left knee pain: Code(s): M25.562 - Pain in left knee Category: Medical (5) HTN (hypertension): Code(s): I10 - Essential (primary) hypertension Category: Medical Qualifiers: Hypertension type: essential hypertension Qualified Code(s): I10 - Essential (primary) hypertension (6) Postoperative hypothyroidism: Code(s): E89.0 - Postprocedural hypothyroidism Category: Medical (7) Hyperparathyroidism: Code(s): E21.3 - Hyperparathyroidism, unspecified Category: Medical (8) Intermittent asthma: Code(s): J45.20 - Mild intermittent asthma, uncomplicated Category: Medical Plan Plan Patient was informed and verbally consented to the use of an ambient scribe for clinic note documentation during this visit. 1. Essential Hypertension Hypertension is managed with amlodipine, hydrochlorothiazide, and lisinopril, with plans to recheck blood pressure in a few weeks. 2. Joint Pain Joint pain in the hands, left knee, shoulders, and hips is being evaluated with radiographs and a referral to rheumatology. 3. Asthma Asthma is controlled with Symbicort, with no recent exacerbations reported. 4. Constipation Constipation is managed with lactulose as needed, and is currently controlled. 5. Preventative Care The patient received a flu vaccination during this visit. Orders: Orders XR knee LT 2V Today M25.562 - Pain in left knee XR hand RT 2V Today M79.641 - Pain in right hand Rheumatoid Factor Today M25.50 - Pain in unspecified joint Cyclic Citrullinated Peptide Today M25.50 - Pain in unspecified joint TOSIN Reflex Titer and Pattern Today M25.50 - Pain in unspecified joint Complete Blood Count Auto Diff Today M25.50 - Pain in unspecified joint Vitamin D 25-OH Total Today E55.9 - Vitamin D deficiency, unspecified Influenza [id number] Immunization Today Z23 - Encounter for immunization XR hand LT 2V Today M79.642 - Pain in left hand Erythrocyte Sedimentation Rate Today M25.50 - Pain in unspecified joint C Reactive Protein Today M25.50 - Pain in unspecified joint Anti DNA DS Antibody Today M25.50 - Pain in unspecified joint Thyroid Stimulating Hormone Today E89.0 - Postprocedural hypothyroidism Lipid Panel Today E78.5 - Hyperlipidemia, unspecified, I10 - Essential (primary) hypertension Comprehensive [place]. Panel Fast Today I10 - Essential (primary) hypertension Referrals Rheumatology Referral M25.50 - Pain in unspecified joint
--- OUTSIDE RECORDS SUMMARY | 2025-04-30 11:25 | XMS_ITS | Patient Health Record ---
Author Organization [facility] Address [address] [place] [address] Care Team Providers Care Piggyback Clerk Name Role Phone Tosin Soliz Primary Care [...] GM As directed Orally Over the specified time.; Duration: 1 day(s) 11/05/2014 Active Pravastatin Sodium 20 MG 1 tablet Orally Once a day Active Problems Problem Type SNOMED Code ICD Code Onset Dates Problem Status W/U Status Risk Notes Problem Colon cancer screening (172212362) Colon cancer screening (V76.51) Active confirmed Plan Of Treatment Future Test Test Name Order Date COLONOSCOPY 11/05/2014 Insurance Providers Payer Name Payer Address Payer Phone Subscriber Number Group Number Insured Name Patient Relationship to Insured Coverage Start Date Coverage End Date [employer] [address] [place] [address] [id number] COLON, ADA Self - patient is the insured Medical (General) History Medical History History ICD Code asthma elevated cholesterol headaches Surgical History Surgery Date(Month/Year) section broken ankle broken wrist
== END 2025-04-30 10:42 | disposition home or self-care (01) ==
LOC: HO.HMCH 09:53
PROVIDERS: PCP Internal Medicine; Visit Provider Internal Medicine
DX: M25.50 Pain in unspecified joint (principal); M79.642 Pain in left hand; M79.641 Pain in right hand; M25.562 Pain in left knee; I10 Essential (primary) hypertension; E89.0 Postprocedural hypothyroidism; E21.3 Hyperparathyroidism, unspecified; J45.20 Mild intermittent asthma, uncomplicated; Z23 Encounter for immunization

== ENCOUNTER → 2025-04-30 09:52 | Outpatient (BNVA) | payer OTHER, SELFPAY | PROVIDERS: PCP Internal Medicine; Visit Provider Internal Medicine | DX: I10 Essential (primary) hypertension (principal); M25.542 Pain in joints of left hand; M25.511 Pain in right shoulder; M25.512 Pain in left shoulder; M25.551 Pain in right hip; M25.552 Pain in left hip; M25.562 Pain in left knee; M25.541 Pain in joints of right hand; E89.0 Postprocedural hypothyroidism; E21.3 Hyperparathyroidism, unspecified; J45.20 Mild intermittent asthma, uncomplicated; Z23 Encounter for immunization; Z79.899 Other long term (current) drug therapy | CPT/HCPCS: 90471; 90656; 99212 ==

== ENCOUNTER 2025-06-26 10:36 | Outpatient (AMB) | payer OTHER, SELFPAY ==
--- NOTE | 2025-06-26 10:37 | MHC.OFFVIS ---
Vital Signs 06/26/25 10:38 Height 5 ft Weight 194 lb 11.198 oz BMI 38.0 BP 142/82 H Blood Pressure Location Rt brachial Position Sitting Pulse 72 Pulse Source Pulse Oximeter Pulse Oximetry (%) 98 Oxygen Delivery Method Room Air Intake Visit Reasons: Hyperparathyroidism Intake Note: Patient presents here today for Hyperparathyroidism follow-up after completion of work-up. Last seen by Dr Jamie MD Thyroid Function Tests: Labs completed at [facility] on 03/10/2025 Personal Care Assistant Required: Yes Personal Care Assistant Language: Pc Maintenance Technician Services: Personal Care Assistant Offered & Declined (DR Howard Speak Fluent Sapanish) Accompanied by: Self / Same As Patient Allergies No Known Allergies Allergy (Verified 06/26/25 10:40) HPI Comments Details: 64-year-old female coming in today for initial evaluation of elevated PTH level. She also has a history of postsurgical hypothyroidism. Last seen by Dr. Ayala in 01/30/25. This is my first time seen this patient. Chart review shows labs from November 2024 DEXA August 2024 showed osteopenia of the lumbar spine with T-score of-1.1, T-score of 1.1 at the left total hip and 0.3 at the left femoral neck consistent with normal bone density of the hip. FRAX not elevated. ( hystrectomtomy in 20s , because of finroids, ovaries also taken out because of cysts, was on HRT till 2000 when she moved from [place] ) no kidney stones , ultrasound kidney 10/05 no stones no fractures HCTZ use: many years for HTN vitamin D: 1000 units daily since December 2024 calcium supplements : 667 mg daily , milk : none doesnt like , no yogurt , cheese 3-4 times a week , does have green leafy vegetables. Nontoxic multinodular goiter s/p left lobectomy 01/27/23 Post surgical hypothyroidism Last saw Dr. Rossi December 2023 04/12/2018: FNA biopsy of a large left lower pole 4.3 cm nodule with benign cytology 04/03/2019: Ultrasound thyroid showed a decrease in the size of the nodule to 3.8 cm. When she started having some compressive symptoms 07/05/2021: CT of the neck revealed a large nodule exophytic to the left lobe extending into the superior mediastinum Ultrasound thyroid showed a left lower pole 5.4 cm nodule. 02/03/2022: FNA biopsy of the left lower pole 5 point cm thyroid nodule with benign cytology. 01/27/23: Status post left lobectomy with Dr. Sara Bah at [facility]. Then she became hypothyroid. On levothyroxine postoperatively. Most recent TSH within normal limits. Interval history: Reports polydypsia, polyuria Reports taking calcium supplements but they cause constipation No recent hospitalization or changes in medications Reports dysphagia for about 1 month, sudden, only 1 time takes calcium and vitamin D supplementation Takes levothyroxine 75 mcg daily Denies symptoms concerning for hypothyroidism Physical exam: General: Well appearing. NAD. Not Cushingoid or Acromegalic Neck/Thyroid: Thyroid not palpable, no nodules. Eyes: No conjunctival injection, not lid lag or proptosis CV: RRR, no murmur. No edema. Resp:Lungs clear to auscultation bilaterally Abdomen: Soft, nontender. nondistended Extremities/Neuro: No weakness or tremor of outstretched hands Labs 05/10/25 EXAMINATION: DXA BONE DENSITY EXTREMITY 09/13/24 HISTORY: Estrogen deficiency TECHNIQUE: DeliveryEdge Dual energy absorptiometry (DEXA) of the lumbar spine, total left hip, femoral neck, and distal radius was performed. COMPARISON: There are no prior studies for comparison. FINDINGS: The bone mineral density of the lumbar spine is 1.049 with a T-score of -1.1, and a Z-score of -0.5. The bone mineral density of the left total hip is 1.150 with a T-score of 1.1, and a Z-score of 1.6. The bone mineral density of the left femoral neck is 1.077 with a T-score of 0.3, and a Z-score of 1.1. The bone mineral density of the distal radius is 0.892 with a T-score of 0.2, and a Z-score of 1.3. FRACTURE RISK: The FRAX index suggests a risk of major osteoporotic fracture of 2.7%, and of hip fracture 0.1%. MM/XR DEXA appendicular skeleton IMPRESSION: Based on bone mineral density, and according to World Health Organization (WHO) criteria, the diagnosis is consistent with osteopenia. CT Neck: 07/05/2021 FINDINGS: There is a large thyroid nodule exophytic to the lower pole of the left lobe. This measures 3.3 x 3.1 x 5.2 cm in AP transverse and longitudinal dimension. Extends substernally into the superior mediastinum. This displaces the trachea to the right. No mediastinal adenopathy is seen. There is shotty diffuse cervical lymphadenopathy. No enlarged lymph nodes are seen. Visualized intracranial structures are normal. The orbits are normal. The paranasal sinuses, mastoid air cells and middle ears are clear. There is prominent soft tissue seen in the oropharynx. This may represent prominent lymphoid tissue. The epiglottis and larynx are normal. There is mild degenerative spondylosis and degenerative disc disease at C5-C6 and C6-C7. CT/CT soft tissue neck wo con IMPRESSION: Large left thyroid nodule exophytic to the lower pole extending substernally into the chest and displacing the trachea to the right. Shotty bilateral cervical lymphadenopathy. No enlarged lymph nodes are seen. Fullness of the soft tissues in the oropharynx question representing prominent adenoidal soft tissue. Clinical correlation recommended. Thyroid US: 07/26/2021 Right Thyroid Lobe: 4.7 x 1.6 x 1.7 cm, volume 6.7 mL. Previously 5.0 x 1.6 x 1.8 cm, volume 7.5 mL. Parenchyma: The gland echotexture is heterogeneous. Thyroid vascularity is normal. Left Thyroid Lobe: 6.5 x 3.0 x 2.8 cm, volume 28.6 mL. Previously 5.7 x 2.7 x 2.5 cm, volume 20.1 mL. Parenchyma: The gland echotexture is heterogeneous. Thyroid vascularity is normal. Isthmus: 0.7 cm in maximum AP dimension. Previously 0.4 cm. Estimated total number of nodules greater than or equal to 1 cm: 1. Broomcorn Grader nodules are described as follows: 1. Location: Left lower. Size: 5.4 x 2.9 x 3.4 cm, volume 27.8 mL. Previously: 3.8 x 2.6 x 2.7 cm, volume 14.0 mL. Nodule characteristics: Composition: Solid (2). Echogenicity: Hypoechoic (2). Shape: Not taller than wide (0). Margins: Ill-defined (0). Echogenic Foci: None (0). ACR TI-RADS total points: 4 ACR TI-RADS category: 4 Significant change in size (>/= 20% in 2 dimensions and minimal increase of 2 mm or 50% or greater increase in volume): Yes Change in features: No Change in ACR TI-RADS risk category: No NODES: No lymphadenopathy is seen in the tissue surrounding the thyroid gland. [facility] Medical History Hyperparathyroidism History of COVID-19 (~03/2021) Vitamin D deficiency Multinodular thyroid Obesity (BMI 30-39.9) Surgical History History of surgery History of colonoscopy History of hand surgery History of ankle surgery History of total abdominal hysterectomy and bilateral salpingo-oophorectomy History of section Family History Father Hypertension Diabetes mellitus Mother Hypertension Paternal Aunt Breast cancer Brother Myocardial infarction Social History Household Members: Children Housing: House Alcohol intake: current Alcohol intake frequency: holidays/special occasions only Alcohol type: wine Patient Tobacco Use Status: Never used Tobacco e-Cigarette/Vaping Use: Never Used Second Hand Smoke Exposure: No service: No Current occupational status: employed Current occupational exposures/hazards: No Cognitive needs: No Hearing needs: No Vision needs: Yes Physical Exam Vital Signs: Last Vital Signs Pulse 72 06/26/25 10:38 BP 142/82 H 06/26/25 10:38 Pulse Ox 98 06/26/25 10:38 Oxygen Delivery Method Room Air 06/26/25 10:38 BMI result Body Mass Index 38.0 Assessment & Plan Assessment & Plan (1) Osteopenia: Code(s): M85.80 - Other specified disorders of bone density and structure, unspecified site Category: Medical Qualifiers: Osteopenia location: spine Qualified Code(s): M85.88 - Other specified disorders of bone density and structure, other site (2) Hyperparathyroidism: Code(s): E21.3 - Hyperparathyroidism, unspecified Category: Medical Plan: 64-year-old female coming in today for initial evaluation of elevated PTH level. I believe the PTH level was done maybe because of osteopenia of lumbar spine. Though her bone density is not that bad, plus FRAX is not elevated. She has several risk factors to have osteopenia, which include poor nutritional intake of calcium, early surgical menopause, she was only on HRT up until her 40s. DEXA August 2024 showed osteopenia of the lumbar spine with T-score of-1.1, T-score of 1.1 at the left total hip and 0.3 at the left femoral neck consistent with normal bone density of the hip. FRAX not elevated. Labs from 12/05/2024: Creatinine 0.81, EGFR greater than 60, calcium 9.4, phosphorus 3.1, albumin 4.2, corrected calcium would be 9.2, vitamin-D 34.1, TSH 1.60, PTH level 112.1. 24 hour urine calcium at 60. With calcium creatinine ratio of 41. Most of her calciums have been in the range of 9 to 10. She has no history of kidney stones. No hypercalciuria. If anything her 24 hour urine calcium reflects her poor nutritional intake of calcium. PTH is likely elevated in the setting of poor calcium intake. Most recent labs showed Cr 0.62, P 3.1, 4.2, PTH 65, Ca 9.4, Vit D 41, iCa 5.2, indicating that her initial PTH elevation was related to low calcium intake. At this point recommendations are to continue calcium and and vitamin D supplementation Monitor Vitamin D yearly if normal Advised to increment physical activity to 150 mins/wk Repeat DXA in 2 years () Will discharge to PCP (3) Postoperative hypothyroidism: Code(s): E89.0 - Postprocedural hypothyroidism Category: Medical Plan: Managed mostly by PCP Currently on Levothyroxine 75 mcg daily. Most recent TSH 2.39 Continue Levothyroxine 75 mcg daily Plan 30 minutes spent reviewing previous records, labs, imaging, education and documenting in the chart Coding Level of Care Code Est Pt Level 4 (40214) Add On Problem Visit Only Diagnoses Osteopenia of spine M85.88 Osteopenia location: spine Hyperparathyroidism E21.3 Postoperative hypothyroidism E89.0
[2025-06-26 10:38] VITALS: BP 142/82; PULSE 72; O2SAT 98; BMI 38.0
== END 2025-06-26 11:12 | disposition home or self-care (01) ==
LOC: HO.ENCR 10:36
PROVIDERS: PCP Internal Medicine; Visit Provider Student in an Organized Health Care Education/Training Program
DX: M85.88 Other specified disorders of bone density and structure, other site (principal); E21.3 Hyperparathyroidism, unspecified; E89.0 Postprocedural hypothyroidism
CPT/HCPCS: 99214

== ENCOUNTER → 2025-06-26 10:36 | Outpatient (BNVA) | payer OTHER, SELFPAY | PROVIDERS: PCP Internal Medicine; Visit Provider Student in an Organized Health Care Education/Training Program | DX: E21.3 Hyperparathyroidism, unspecified (principal); M85.88 Other specified disorders of bone density and structure, other site; E89.0 Postprocedural hypothyroidism; Z79.899 Other long term (current) drug therapy | CPT/HCPCS: 99212 ==